=== PATIENT | female | born 1975 | race Caucasian/White ===

== ENCOUNTER 2020-08-02 11:53 | Outpatient (RCR) | payer OTHER, SELFPAY | END 2020-08-02 11:54 | disposition home or self-care (01) | LOC: HO.PT 11:53 | PROVIDERS: Visit Provider Internal Medicine | DX: M54.2 Cervicalgia (principal) | CPT/HCPCS: 97014; 97110; 97140 ==

== ENCOUNTER 2020-09-07 13:59 | Outpatient (REF) | payer OTHER, SELFPAY ==
[2020-09-10 22:57] LABS: HPV 16 RNA NOT DETECTED (NOT DETECTED); HPV mRNA E6/E7 rflx Detected (Not Detected)
== END 2020-09-07 14:00 | disposition home or self-care (01) ==
LOC: HO.LAB 13:59
PROVIDERS: PCP Internal Medicine; Referring Provider Internal Medicine; Visit Provider Obstetrics & Gynecology
DX: Z01.419 Encounter for gynecological examination (general) (routine) without abnormal findings (principal)
CPT/HCPCS: 87624; 87625; 88141; 88142

== ENCOUNTER 2020-09-13 08:37 | Outpatient (REF) | payer OTHER, SELFPAY ==
[2020-09-13 11:04] LABS: COVID-19 Test Negative (Negative); IDNOW Serial# 55D5AD1C
== END 2020-09-13 08:38 | disposition home or self-care (01) ==
LOC: HO.EMPCOV 08:37
PROVIDERS: PCP Internal Medicine; Visit Provider Internal Medicine
DX: Z20.828 Contact with and (suspected) exposure to other viral communicable diseases (principal)
CPT/HCPCS: 87635; C9803

== ENCOUNTER 2020-10-06 07:49 | Outpatient (REF) | payer OTHER, SELFPAY ==
--- NOTE | 2020-10-06 | US_ITS ---
EXAMINATION: US ABDOMEN COMPLETE CLINICAL INFORMATION: Chronic hepatitis B. COMPARISON: Ultrasound abdomen complete dated 01/08/2019 and 12/29/2016. CT abdomen and pelvis without contrast dated 09/04/2014. MRI abdomen without and with contrast dated 01/19/2010. TECHNIQUE: Real-time imaging of the abdominal viscera. FINDINGS: PANCREAS: Normal. ABDOMINAL AORTA: The proximal, mid, and distal segments are normal in caliber. INFERIOR VENA CAVA: Visualized portions are normal. LIVER: There is a 1.1 x 0.9 x 1.3 cm echogenic liver lesion right hepatic lobe suggestive of a small hemangioma. No additional lesions seen. The liver is normal in size. The liver contour is normal. Parenchymal echogenicity is normal. There is no intrahepatic biliary duct dilatation seen. GALLBLADDER: There is small polyps along the posterior ulnar wall. The gallbladder is physiologically distended without evidence of stones, sludge, wall thickening or pericholecystic fluid. COMMON BILE DUCT: Normal in caliber measuring 0.4 cm in diameter. RIGHT KIDNEY: Normal. No hydronephrosis. No renal calculi or focal parenchymal lesions. The kidney measures 10.0 cm in maximum dimension. LEFT KIDNEY: Normal. No hydronephrosis. No renal calculi or focal parenchymal lesions. The kidney measures 11.3 cm in maximum dimension. SPLEEN: Normal. The spleen measures 9.3 cm in maximum dimension. FREE FLUID: None. US/US abdomen complete IMPRESSION: Right lower lobe liver hemangioma measuring 1.3 cm. Small gallbladder polyps but no echogenic stones or wall thickening. The rest of the abdominal ultrasound is unremarkable.
== END 2020-10-06 07:50 | disposition home or self-care (01) ==
LOC: HO.US 07:49
PROVIDERS: Visit Provider Internal Medicine
DX: B18.1 Chronic viral hepatitis B without delta-agent (principal)
CPT/HCPCS: 76700

== ENCOUNTER 2020-11-12 12:08 | Outpatient (REF) | payer OTHER, SELFPAY ==
--- NOTE | 2020-11-12 12:16 | MM_ITS ---
EXAMINATION: MM SCREENING DIGITAL BREAST TOMOSYNTHESIS, BILATERAL CLINICAL INFORMATION: Screening. Asymptomatic. The lifetime risk of breast cancer based on the Tyrer-Cuzick Model is 19%. COMPARISON: Mammography: 01/23/2019, 12/17/2017, 09/15/2016 TECHNIQUE: Digital breast tomosynthesis is performed in both the craniocaudal and mediolateral oblique views along with computer-aided detection (CAD). Synthesized 2D images are generated from the tomosynthesis. FINDINGS: The breasts are heterogeneously dense, which may obscure small masses (ACR BI-RADS breast composition Category c). There are no significant masses, abnormal calcifications, or other abnormalities. The axilla and skin contours are unremarkable. There is biopsy clip marker again noted anterior right breast. MM/MM tomosynthesis screening BI IMPRESSION: No mammographic evidence of malignancy. ASSESSMENT: BI-RADS 1: Negative RECOMMENDATION: Routine annual mammography screening. This patient's information was entered into a reminder system with a target due date for their next mammogram.
== END 2020-11-12 12:09 | disposition home or self-care (01) ==
LOC: HO.MAMMO 12:08
PROVIDERS: PCP Internal Medicine; Visit Provider Internal Medicine
DX: Z12.31 Encounter for screening mammogram for malignant neoplasm of breast (principal)
CPT/HCPCS: 77063; 77067

== ENCOUNTER 2020-11-17 09:11 | Outpatient (REF) | payer OTHER, SELFPAY ==
[2020-11-17 10:27] LABS: Prothrombin Time 11.8 SEC (10.8-13.0)
[2020-11-18 11:32] LABS: Alpha Fetoprotein 2.8 ng/mL
[2020-11-20 15:22] LABS: Hepatitis B Viral DNA Qn - cp 2.51 Log IU/mL (NOT DETECTED); Hepatitis B Viral DNA Qn-IU/mL 325 IU/mL (NOT DETECTED)
== END 2020-11-17 09:12 | disposition home or self-care (01) ==
LOC: HO.LAB 09:11
PROVIDERS: PCP Internal Medicine; Visit Provider Internal Medicine
DX: B18.1 Chronic viral hepatitis B without delta-agent (principal)
CPT/HCPCS: 36415; 82105; 85610; 87517

== ENCOUNTER → 2021-09-09 09:03 | Outpatient (BNVA) | payer OTHER, SELFPAY | PROVIDERS: PCP Internal Medicine; Visit Provider Advanced Practice Midwife ==

== ENCOUNTER 2021-09-09 11:10 | Outpatient (REF) | payer OTHER, SELFPAY ==
--- NOTE | ~2021-09-09 | US_ITS ---
EXAMINATION: US ABDOMEN COMPLETE CLINICAL INFORMATION: Abdominal pain. Rule out gallbladder disease. COMPARISON: Ultrasound abdomen complete 10/06/2020 and 01/08/2019. CT abdomen and pelvis 09/04/2014. MRI abdomen 01/19/2010. TECHNIQUE: Real-time imaging of the abdominal viscera. FINDINGS: PANCREAS: Normal. ABDOMINAL AORTA: The proximal, mid, and distal segments are normal in caliber. INFERIOR VENA CAVA: Visualized portions are normal. LIVER: There is a 1.1 cm echogenic lesion high in the right lobe of the liver that is stable and probably represents a benign hemangioma. No other focal liver lesion is seen. The liver is normal in size. The liver contour is normal. Liver echotexture is slightly increased. There is no intrahepatic biliary duct dilatation seen. GALLBLADDER: The gallbladder is normal in size. There is a small echogenic density adjacent to the gallbladder wall measuring 3 x 2 mm suggestive of a gallbladder wall polyp. The gallbladder is otherwise unremarkable. No definite gallstones are seen. COMMON BILE DUCT: Normal in caliber measuring 0.1 cm in diameter. RIGHT KIDNEY: Normal. No hydronephrosis. No renal calculi or focal parenchymal lesions. The kidney measures 10.1 cm in maximum dimension. LEFT KIDNEY: Normal. No hydronephrosis. No renal calculi or focal parenchymal lesions. The kidney measures 11.1 cm in maximum dimension. SPLEEN: Normal. The spleen measures 8.4 cm in maximum dimension. FREE FLUID: None. US/US abdomen complete IMPRESSION: Slightly echogenic liver. Stable 1 cm echogenic lesion high in the right lobe of the liver probably representing a benign hemangioma. Stable probable small gallbladder wall polyp.
[2021-09-09 13:22] LABS: MANUAL DIFF FLAG NO
[2021-09-09 13:39] LABS: Basophils Absolute Auto 0.1 X10*3/uL (0.0-0.2); Basophils Percent Auto 0.7 % (0-2); Eosinophils Absolute Auto 0.1 X10*3/uL (0.0-0.4); Eosinophils Percent Auto 0.7 % (0-4); Hematocrit 38.6 % (37.0-47.0); Hemoglobin 13.2 g/dl (12.0-16.0); Imm Gran Abs Auto 0.02 X10*3/uL (0.00-0.03); Imm Gran Pct Auto 0.3 % (0.0-0.4); Lymphocytes Absolute Auto 1.7 X10*3/uL (1.2-4.9); Lymphocytes Percent Auto 24.5 % (20-40); Mean Corpuscular HGB Conc 34.2 g/dl (31.0-35.0); Mean Corpuscular Hemoglobin 32.6 pg (27.0-33.0); Mean Corpuscular Volume 95.3 fL (80.0-98.0); Mean Platelet Volume 10.2 fL (9.4-12.3); Monocytes Absolute Auto 0.5 X10*3/uL (0.1-1.2); Monocytes Percent Auto 6.7 % (2-11); Neutrophils Absolute Auto 4.6 x10*3/uL (2.0-8.3); Neutrophils Percent Auto 67.1 % (45-73); Platelet Count 265 X10*3/uL (160-400); Red Blood Count 4.05 X10*6/uL (4.20-5.50); Red Cell Distribution Width 11.9 % (11.0-16.0); White Blood Count 6.8 X10*3/uL (4.8-10.8)
[2021-09-09 13:53] LABS: Alanine Aminotransferase 13 U/L (0-31); Albumin Level 4.2 g/dL (3.5-5.0); Alkaline Phosphatase 39 U/L (39-117); Anion Gap 15 (12-20); Aspartate Amino Transferase 15 U/L (5-31); Bilirubin Total 0.8 mg/dL (0.0-1.0); Blood Urea Nitrogen 9 mg/dL (9-16); C Reactive Protein 0.06 mg/dL (< or = 0.50); Carbon Dioxide 21 mmol/L (22-29); Chloride 105 mmol/L (96-108); Estimated Glomerular Filt Rate > 60; Glucose Random 88 mg/dL (60-115); Lipase 13 U/L (8-78); Potassium 3.9 mmol/L (3.3-5.1); Sodium 137 mmol/L (135-145)
[2021-09-09 14:14] LABS: Vitamin D 25-OH Total 19.2 ng/mL (>30)
== END 2021-09-09 11:11 | disposition home or self-care (01) ==
LOC: HO.10HDL 11:10
PROVIDERS: Visit Provider Internal Medicine
DX: R10.84 Generalized abdominal pain (principal)
CPT/HCPCS: 36415; 76700; 80053; 82306; 83690; 85025; 86140

== ENCOUNTER 2021-09-20 07:50 | Outpatient (REF) | payer OTHER, SELFPAY ==
--- NOTE | ~2021-09-20 | CT_ITS ---
EXAMINATION: CT ABDOMEN WITHOUT CONTRAST CLINICAL INFORMATION: Epigastric pain COMPARISON: Previous CT August 2014 and abdominal ultrasound 09/17/2021. Liver MRI or December 2009. Images not available. TECHNIQUE: Contiguous axial thin section helical images of the abdomen were performed without contrast. The data set was reformatted in the coronal and sagittal planes and reviewed on an independent workstation. This CT examination was performed using dose optimization techniques as appropriate, variously including the following: *Automated exposure control *Adjustment of mA and/or kV according to patient size (this includes techniques or standardized protocols for targeted exams where dose is matched to indication/reason for exam; i.e. extremities or head) *Use of iterative reconstruction technique DLP: 164 mGy-cm FINDINGS: LUNG BASES: The lung bases are clear. LIVER, GALLBLADDER, BILIARY TREE: The there is a 1 cm low-attenuation lesion high in the dome of the right lobe of the liver axial image 11 series 3. This is stable from prior exams and probably represents a hemangioma. the liver is otherwise normal. The gallbladder is normal. There is no biliary duct dilatation or PANCREAS: Unremarkable SPLEEN: Unremarkable ADRENAL GLANDS AND KIDNEYS: Unremarkable BOWEL LOOPS: The visualized small and large bowel is unremarkable. The stomach is unremarkable. There is a small umbilical hernia containing fat. LYMPH NODES: Unremarkable VASCULAR: Unremarkable. BONES: There is degenerative disc disease at L4-L5 and L5-S1. CT/CT abdomen wo con IMPRESSION: Stable 1 cm liver lesion in the right lobe liver probably representing a hemangioma. Small umbilical hernia containing fat. Fleischner guidelines were followed.
== END 2021-09-20 07:51 | disposition home or self-care (01) ==
LOC: HO.CT 07:50
PROVIDERS: PCP Internal Medicine; Visit Provider Internal Medicine
DX: R10.13 Epigastric pain (principal)
CPT/HCPCS: 74150

== ENCOUNTER 2021-09-30 08:54 | Outpatient (REF) | payer OTHER, SELFPAY ==
[2021-10-03 14:46] LABS: Alpha Fetoprotein 2.6 ng/mL
[2021-10-05 14:11] LABS: Hepatitis B Viral DNA Qn - cp 2.84 Log IU/mL (NOT DETECTED); Hepatitis B Viral DNA Qn-IU/mL 687 IU/mL (NOT DETECTED)
== END 2021-09-30 08:55 | disposition home or self-care (01) ==
LOC: HO.10HDL 08:54
PROVIDERS: Visit Provider Internal Medicine
DX: B18.1 Chronic viral hepatitis B without delta-agent (principal)
CPT/HCPCS: 36415; 82105; 87517

== ENCOUNTER 2021-10-19 10:02 | Day surgery (SDC) | payer OTHER, SELFPAY ==
[2021-10-19 10:15] VITALS: BMI 25.9
[2021-10-19 10:18] LABS: UPreg QC Valid YES; Urine Pregnancy NEGATIVE (NEGATIVE)
[2021-10-19 10:19] VITALS: BP 135/72; PULSE 80; RESP 16; TEMP 37.1; O2SAT 98
--- NOTE | 2021-10-19 11:21 | HO.ANESPROP2 ---
HPI - Anesthesia Eval Consult details Narrative: 46 F for EGD PMFSH Family History Family History Paternal Grandmother Breast cancer Family history of problems with anesthesia: No Surgical History Surgical History History of breast biopsy History of section History of orthopedic surgery History of Problems with Anesthesia: No Social History Social History Alcohol intake: current Alcohol intake frequency: a few times a week Patient Tobacco Use Status: Never used Tobacco Use of substances other than those prescribed or required for medical reasons: No Are you DNR?: No Advance Directives: Yes Advance Directives Date on File: 08/02/20 Current occupational status: employed 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 [employer] Sexual orientation: Straight/Heterosexual Gender identity: Female Meds Allergies Allergy/AdvReac Type Severity Reaction Status Date / Time No Known Allergies Allergy Verified 09/09/21 09:17 Exam Exam Date and Time: October 19, 2021 1121 Height,Weight and Vital Signs: Height 5 ft Weight 60.328 kg Last Vital Signs Temp 98.7 F 10/19/21 10:19 Pulse 80 10/19/21 10:19 Resp 16 10/19/21 10:19 BP 135/72 10/19/21 10:19 Pulse Ox 98 10/19/21 10:19 Pertinent Lab Results Pertinent Lab Results: Laboratory Tests 10/19/21 10:08 Urine Test NEGATIVE Airway Mallampati Class: II TM Dist: >3cm Neck ROM: Limited Loose/Missing/Broken Teeth: Yes (Permanent ) Heart: rrr Lungs: bl breath sounds Assessment and Plan Final Anesthetic Review Family History of Problems with Anesthesia: No History of Problems with Anesthesia: No NPO: Yes ASA Class: I Final Preanesthetic Review: Meds/Allgs Chart Reviewed Anesthetic Plan Anesthetic Plan: MAC: Disposition: Standard PACU
[2021-10-19] MEDS: Lactated Ringers 1,000 ML 80 ML IVCONT (11:29)
--- NOTE | 2021-10-19 11:31 | PC.NURSE ---
Patient wearing wedding ring x2 and one stud earring in left ear. Can not be removed per patient. Patient educated on risks of wearing metal into OR/Procedure room.
[2021-10-19 11:58] VITALS: BP 130/57; PULSE 85; RESP 12; TEMP 36.6; O2SAT 99
--- NOTE | 2021-10-19 12:00 | P.BOP_ITS ---
Brief Operative Note Date of Service: 10/19/21 Pre-op diagnosis: Abdominal pain Post-op diagnosis: other (Small hiatal hernia) Procedure: EGD with biopsies Surgeon: Garrick Johnson Anesthesia: MAC Was an Compliance And Control Analyst used for this Procedure?: No Estimated blood loss (mL): 2.0 Pathology: other (A. Descending duodenum B. Gastric antrum C. EG Junction at 35cm) Condition: stable Disposition: PACU
[2021-10-19 12:15] VITALS: BP 117/63; PULSE 76; RESP 16; TEMP 36.6; O2SAT 99
--- NOTE | 2021-10-19 12:40 | OP_ITS ---
SURGEON: Garrick Johnson MD INDICATIONS: The patient presents for evaluation of abdominal pain. Full consent was obtained from her for this, including risks of bleeding and perforation. PREOPERATIVE DIAGNOSIS: Abdominal pain. POSTOPERATIVE DIAGNOSIS: PROCEDURE PERFORMED: Esophagogastroduodenoscopy with biopsies. ESTIMATED BLOOD LOSS: COMPLICATIONS: ANESTHESIA: Monitored anesthesia care. ASSISTANTS: SPECIMENS: POSTOPERATIVE DIAGNOSES: Abdominal pain, small hiatal hernia, otherwise normal upper endoscopy. DESCRIPTION OF PROCEDURE: The patient was placed in the left lateral decubitus position. The Olympus video gastroscope was passed in the posterior oropharynx and upper esophagus under direct vision. The scope was passed slowly into the distal esophagus. The gastroesophageal junction appeared at 35 cm. There was no sign of any esophagitis nor Benites's mucosa. There was perhaps some minimal irregularity of the EG junction itself, but again nothing significant. The scope entered the stomach. There was a small hiatal hernia. The scope was advanced to pylorus and the duodenum was cannulated at the descending portion. The duodenum including the bulb appeared normal without mass or ulceration. Biopsies were obtained from the 2nd and 3rd portions of duodenum. The scope was withdrawn back into the stomach. The gastric antrum and body appeared normal with good peristalsis. The scope was retroflexed visualizing the proximal stomach carefully which appeared normal, without any sign of mass or ulceration. The scope was straightened. Biopsies were obtained from the prepyloric antrum. Scope was withdrawn back into the esophagus. Biopsies were obtained at the EG junction at 35 cm. Proximal to this, the esophageal mucosa appeared normal. The scope was withdrawn from the patient. She tolerated the procedure well and was returned to recovery area in stable condition. IMPRESSION: Small hiatal hernia, otherwise normal upper endoscopy. PLAN: The results of biopsies will be checked. She does report that things have continued to improve fairly steadily since the pain was relatively severe. Her recent workup has included a negative abdominal ultrasound and negative CT scan of the abdomen as well as normal laboratories. At this point, I am not going to put her on any medication and I do not think any further diagnostic testing is needed. I would plan to see her again within 2 to 3 months just for a followup visit. If things continue to improve and resolve, then I do not think any further treatment or workup would be needed. If she continues to have significant pain, particularly in the right upper quadrant, then we might want to obtain a HIDA scan with CCK to rule out acalculous cholecystitis. I did advise her to call me prior to the office visit if she is having any problems or questions. This has been discussed with her . MD MANUEL Allen/CHARLEE / [id number]
== END 2021-10-19 12:54 | disposition home or self-care (01) ==
PROVIDERS: Anesthesiology; PCP Internal Medicine; Visit Provider Internal Medicine
PROC: 0DJ08ZZ Inspection of Upper Intestinal Tract, Via Natural or Artificial Opening Endoscopic (ICD-10-PCS; CPT 43235; principal; 2021-10-19 11:10)
DX: R10.13 Epigastric pain (principal); R10.11 Right upper quadrant pain; K44.9 Diaphragmatic hernia without obstruction or gangrene; K31.9 Disease of stomach and duodenum, unspecified; B18.1 Chronic viral hepatitis B without delta-agent; Z79.1 Long term (current) use of non-steroidal anti-inflammatories (NSAID)
CPT/HCPCS: 43239; 81025; 88305; 88342

== ENCOUNTER 2022-03-23 07:32 | Outpatient (REF) | payer OTHER, SELFPAY ==
--- NOTE | ~2022-03-23 | MM_ITS ---
EXAMINATION: MM SCREENING DIGITAL BREAST TOMOSYNTHESIS, BILATERAL CLINICAL INFORMATION: Screening. Asymptomatic. The lifetime risk of breast cancer based on the Tyrer-Cuzick Model is 14%. COMPARISON: Mammography: and studies dating back to 03/10/2013 TECHNIQUE: Digital breast tomosynthesis is performed in both the craniocaudal and mediolateral oblique views along with computer-aided detection (CAD). Synthesized 2D images are generated from the tomosynthesis. FINDINGS: The breasts are extremely dense, which lowers the sensitivity of mammography (ACR BI-RADS breast composition Category d). In the retroareolar region of the right breast on mediolateral oblique projection there is a 1.2 x 0.8 cm density for which spot compression view and possible ultrasound is recommended. Radiology staff will contact patient to obtain this study. MM/MM tomosynthesis screening BI IMPRESSION: Right breast retroareolar density for further evaluation with spot compression view. ASSESSMENT: BI-RADS 0: Incomplete - Need Additional Imaging Evaluation RECOMMENDATION: 1. Additional views of the right breast. 2. Targeted ultrasound if warranted after review of the additional views. 3. Radiology department staff will contact the patient for additional imaging.
== END 2022-03-23 07:33 | disposition home or self-care (01) ==
LOC: HO.MAMMO 07:32
PROVIDERS: PCP Internal Medicine; Visit Provider Internal Medicine
DX: Z12.31 Encounter for screening mammogram for malignant neoplasm of breast (principal)
CPT/HCPCS: 77063; 77067

== ENCOUNTER 2022-04-05 13:52 | Outpatient (REF) | payer OTHER, SELFPAY ==
--- NOTE | ~2022-04-05 | MM_ITS ---
EXAMINATION: MM DIAGNOSTIC DIGITAL BREAST TOMOSYNTHESIS, RIGHT US BREAST TARGETED, RIGHT CLINICAL INFORMATION: Retroareolar density right breast. COMPARISON: Mammography: 03/23/2022 and studies dating back to 03/10/2013. TECHNIQUE: Digital breast tomosynthesis is performed. 2D images are generated from the tomosynthesis. The following views are obtained: Spot compression views of the anterior right breast in craniocaudal and mediolateral oblique views. Targeted right breast ultrasound. FINDINGS: The breasts are extremely dense, which lowers the sensitivity of mammography (ACR BI-RADS breast composition Category d). Additional views show no significant mass, architectural abnormality, or abnormal calcifications. Targeted right breast ultrasound retroareolar region does not demonstrate any abnormal cystic or solid masses. No region of abnormal distal sound shadowing. Results are discussed with the patient at time of visit. MM/MM tomosynthesis added views R IMPRESSION: No mammographic or ultrasound evidence of malignancy. ASSESSMENT: BI-RADS 1: Negative RECOMMENDATION: Routine annual mammography screening. This patient's information was entered into a reminder system with a target due date for their next mammogram.
== END 2022-04-05 13:53 | disposition home or self-care (01) ==
LOC: HO.MAMMO 13:52
PROVIDERS: Visit Provider Internal Medicine
DX: R92.2 Inconclusive mammogram (principal)
CPT/HCPCS: 76642; 77061; 77065

== ENCOUNTER 2022-05-05 07:28 | Day surgery (SDC) | payer OTHER, SELFPAY ==
--- NOTE | 2022-05-04 08:46 | P.CONAN_ITS ---
Documented by User: Olimpia Linton NP 05/04/22 08:46 HPI - Anesthesia Eval Consult details Narrative: 47yo F for Colonoscopy [facility] Past Medical History Medical History Chronic hepatitis B Family History Family History Paternal Grandmother Breast cancer Family history of problems with anesthesia: No Surgical History Surgical History History of breast biopsy History of section History of orthopedic surgery Hx of esophagogastroduodenoscopy History of Problems with Anesthesia: No Social History Social History Alcohol intake: current Alcohol intake frequency: a few times a week Patient Tobacco Use Status: Never used Tobacco Are you DNR?: No Advance Directives: Yes Advance Directives on File: Yes Advance Directives Date on File: 08/02/20 Nutrition Risks: No Nutritional Risk FDLMP: unkown due to iud Current occupational status: employed 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[place] Sexual orientation: Straight/Heterosexual Gender identity: Female Meds Allergies Allergy/AdvReac Type Severity Reaction Status Date / Time No Known Allergies Allergy Verified 05/05/22 08:01 Home Medications Medication Instructions Recorded Confirmed Last Taken Type Vitamin C 02/09/22 Unknown History Exam Exam Date and Time: May 04, 2022 0846 Assessment and Plan Assessment Anesthesia Assessment: Chart Reviewed Final Anesthetic Review Family History of Problems with Anesthesia: No History of Problems with Anesthesia: No Documented by User: Stephanie Khoury MD 05/05/22 08:04 [facility] Past Medical History Medical History Chronic hepatitis B Family History Family History Paternal Grandmother Breast cancer Surgical History Surgical History History of breast biopsy History of section History of orthopedic surgery Hx of esophagogastroduodenoscopy Social History Social History Alcohol intake: current Alcohol intake frequency: a few times a week Patient Tobacco Use Status: Never used Tobacco Are you DNR?: No Advance Directives: Yes Advance Directives on File: Yes Advance Directives Date on File: 08/02/20 Nutrition Risks: No Nutritional Risk FDLMP: unkown due to iud Current occupational status: employed 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[place] Sexual orientation: Straight/Heterosexual Gender identity: Female Meds Allergies Allergy/AdvReac Type Severity Reaction Status Date / Time No Known Allergies Allergy Verified 05/05/22 08:01 Home Medications Medication Instructions Recorded Confirmed Last Taken Type Vitamin C 02/09/22 Unknown History Exam Airway Mallampati Class: II TM Dist: >3cm Neck ROM: Full Assessment and Plan Assessment Anesthesia Assessment: Anesthesia Plan Discussed Final Anesthetic Review NPO: Yes ASA Class: I Final Preanesthetic Review: No Changes in Pt Med Stat, Meds/Allgs Chart Reviewed, Consent Obtained/Reviewed and Anes Risks/Benef Reviewed Patient Risk: Low Procedure Risk: Low Anesthetic Plan Anesthetic Plan: MAC: Disposition: Standard PACU
[2022-05-05 07:57] VITALS: BMI 26.4
[2022-05-05 07:57] LABS: UPreg QC Valid YES; Urine Pregnancy NEGATIVE (NEGATIVE)
[2022-05-05] MEDS: Lactated Ringers 1,000 ML 100 ML IVCONT (07:58)
[2022-05-05 08:11] VITALS: BP 132/81; PULSE 65; RESP 18; TEMP 36.7; O2SAT 99
[2022-05-05 09:35] VITALS: BP 112/62; PULSE 74; RESP 16; TEMP 36.5; O2SAT 97
--- NOTE | 2022-05-05 09:37 | PM.OP ---
Brief Operative Note Date of Service: 05/05/22 Pre-op diagnosis: Screening Post-op diagnosis: other (Internal hemorrhoids) Procedure: Colonoscopy to the cecum and TI Surgeon: Garrick Johnson Anesthesia: MAC Was an Insurance Verifier used for this Procedure?: No Estimated blood loss (mL): 0 Pathology: none sent Condition: stable Disposition: PACU
[2022-05-05 09:50] VITALS: BP 125/67; PULSE 68; RESP 20; TEMP 36.4; O2SAT 100
--- NOTE | 2022-05-05 12:17 | OP_ITS ---
SURGEON: Garrick Johnson MD INDICATIONS: The patient presents for evaluation of colorectal cancer screening. Full consent was obtained from her for this, including risks of bleeding and perforation. PREOPERATIVE DIAGNOSIS: Colorectal cancer screening. POSTOPERATIVE DIAGNOSIS: PROCEDURE PERFORMED: Colonoscopy to cecum and terminal ileum. ESTIMATED BLOOD LOSS: COMPLICATIONS: ANESTHESIA: Monitored anesthesia care. ASSISTANTS: SPECIMENS: POSTOPERATIVE DIAGNOSES: Colorectal cancer screening, internal hemorrhoids. DESCRIPTION OF PROCEDURE: The patient was placed in the left lateral decubitus position. The digital rectal exam revealed no abnormalities. The Olympus video pediatric colonoscope was entered into the rectum and advanced easily to the cecum. Once in the cecum, I did identify normal-appearing cecal pouch with appendiceal orifice and a normal-appearing ileocecal valve. The terminal ileum was cannulated and appeared normal. The scope was withdrawn back into the colon. The entire cecum and ileocecal valve appeared normal. The scope was then slowly withdrawn assessing all mucosal surfaces carefully. Preparation was excellent. I did not visualize any sign of polyps, colitis, or angiodysplasia. In the rectum, scope was retroflexed visualizing internal hemorrhoids, but no other pathology. The rectal mucosa appeared normal. The scope was straightened and withdrawn from the patient. She tolerated the procedure well and was returned to recovery area in stable condition. IMPRESSION: Internal hemorrhoids, otherwise normal colonoscopy. PLAN: Given the negative exam and negative family history, I would recommend a followup colonoscopy in 10 years for further screening. She was advised to see me in 6 months for a followup office visit in regard to her chronic hepatitis B and the need to schedule a followup ultrasound of the liver and lab work, including an alpha fetoprotein level and a hepatitis B viral DNA. This has been discussed with her . MD MANUEL Allen/CHARLEE / [id number] HILARIA
== END 2022-05-05 10:20 | disposition home or self-care (01) ==
PROVIDERS: Nurse Practitioner; PCP Internal Medicine; Visit Provider Internal Medicine
PROC: 0DJD8ZZ Inspection of Lower Intestinal Tract, Via Natural or Artificial Opening Endoscopic (ICD-10-PCS; CPT 45378; principal; 2022-05-05 08:40)
DX: Z12.11 Encounter for screening for malignant neoplasm of colon (principal); K64.8 Other hemorrhoids; B18.1 Chronic viral hepatitis B without delta-agent; Z96.1 Presence of intraocular lens
CPT/HCPCS: 45378; 81025; J2795

== ENCOUNTER 2022-11-07 08:21 | Outpatient (REF) | payer OTHER, SELFPAY ==
[2022-11-08 16:57] LABS: HPV mRNA E6/E7 rflx Not Detected (Not Detected)
== END 2022-11-07 08:22 | disposition home or self-care (01) ==
LOC: HO.LNP 08:21
PROVIDERS: PCP Internal Medicine; Visit Provider Advanced Practice Midwife
DX: Z01.419 Encounter for gynecological examination (general) (routine) without abnormal findings (principal); Z11.51 Encounter for screening for human papillomavirus (HPV)
CPT/HCPCS: 87624; 88142

== ENCOUNTER 2023-02-26 13:56 | Outpatient (REF) | payer OTHER, SELFPAY ==
--- NOTE | ~2023-02-26 | US_ITS ---
EXAMINATION: US ABDOMEN COMPLETE CLINICAL INFORMATION: Chronic hep B. COMPARISON: CT abdomen without contrast 09/20/2021. Ultrasound abdomen complete 09/09/202017/11 and 10/06/2020 TECHNIQUE: Real-time imaging of the abdominal viscera. FINDINGS: PANCREAS: Normal. ABDOMINAL AORTA: The proximal, mid, and distal segments are normal in caliber. INFERIOR VENA CAVA: Visualized portions are normal. LIVER: The liver is normal in size. The liver contour is normal. Parenchymal echogenicity is normal. A 1 cm circumscribed echogenic liver lesion without internal vascularity on the previously 1.1 cm in 2020. There is no intrahepatic biliary duct dilatation seen. GALLBLADDER: A 2 mm gallbladder polyp. The gallbladder is physiologically distended without evidence of stones, sludge, wall thickening or pericholecystic fluid. COMMON BILE DUCT: Normal in caliber measuring 0.2 cm in diameter. RIGHT KIDNEY: Normal. No hydronephrosis. No renal calculi or focal parenchymal lesions. The kidney measures 10.4 cm in maximum dimension. LEFT KIDNEY: Normal. No hydronephrosis. No renal calculi or focal parenchymal lesions. The kidney measures 11.7 cm in maximum dimension. SPLEEN: Normal. The spleen measures 8.7 cm in maximum dimension. FREE FLUID: None. US/US abdomen complete IMPRESSION: A circumscribed, echogenic, avascular liver lesion measuring 1, stable from 2020 likely to reflect a hemangioma. A gallbladder polyp measuring 2 mm, unchanged from 2020. If patient has no risk factors for gallbladder malignancy, follow-up recommendations are repeat ultrasound at one, 3, and 5 years from the date of original exam documenting the findings. If patient has no symptoms and risk factors, follow-up recommendations are ultrasound 6 months and one, 2, 3, 4, and 5 years from the date of original exam documenting the findings.
== END 2023-02-26 13:57 | disposition home or self-care (01) ==
LOC: HO.US 13:56
PROVIDERS: Visit Provider Internal Medicine
DX: B18.1 Chronic viral hepatitis B without delta-agent (principal)
CPT/HCPCS: 76700

== ENCOUNTER 2023-02-27 09:00 | Outpatient (REF) | payer OTHER, SELFPAY ==
[2023-02-27 09:17] LABS: MANUAL DIFF FLAG NO
[2023-02-27 09:21] LABS: Basophils Absolute Auto 0.1 X10*3/uL (0.0-0.2); Basophils Percent Auto 0.7 % (0-2); Eosinophils Absolute Auto 0.1 X10*3/uL (0.0-0.4); Eosinophils Percent Auto 0.7 % (0-4); Hematocrit 41.9 % (37.0-47.0); Hemoglobin 14.2 g/dl (12.0-16.0); Imm Gran Abs Auto 0.04 X10*3/uL (0.00-0.03); Imm Gran Pct Auto 0.5 % (0.0-0.4); Lymphocytes Absolute Auto 2.2 X10*3/uL (1.2-4.9); Lymphocytes Percent Auto 28.5 % (20-40); Mean Corpuscular HGB Conc 33.9 g/dl (31.0-35.0); Mean Corpuscular Volume 97.4 fL (80.0-98.0); Mean Platelet Volume 9.4 fL (9.4-12.3); Monocytes Absolute Auto 0.5 X10*3/uL (0.1-1.2); Neutrophils Absolute Auto 4.8 x10*3/uL (2.0-8.3); Neutrophils Percent Auto 62.6 % (45-73); Platelet Count 257 X10*3/uL (160-400); Red Cell Distribution Width 12.3 % (11.0-16.0); White Blood Count 7.6 X10*3/uL (4.8-10.8)
[2023-02-27 09:31] LABS: Prothrombin Time 10.9 SEC (10.0-13.1)
[2023-02-27 09:46] LABS: Alanine Aminotransferase 15 U/L (0-31); Albumin Level 4.2 g/dL (3.5-5.0); Alkaline Phosphatase 57 U/L (39-117); Aspartate Amino Transferase 18 U/L (5-31); Bilirubin Direct 0.4 mg/dL (0.0-0.5); Bilirubin Total 0.9 mg/dL (0.0-1.0); Total Protein 7.2 g/dL (6.5-8.0)
[2023-03-01 19:44] LABS: Hepatitis B Viral DNA Qn - cp 2.86 Log IU/mL (NOT DETECTED); Hepatitis B Viral DNA Qn-IU/mL 725 IU/mL (NOT DETECTED)
[2023-03-05 14:13] LABS: FIB-ALT 14 U/L (6-29); FIB-Alpha-2-Macroglobulin 232 mg/dL (106-279); FIB-Apolipoprotein A1 200 mg/dL (101-198); FIB-GGT 24 U/L (3-55); FIB-Haptoglobin 117 mg/dL (43-212); FIB-Total Bilirubin 0.5 mg/dL (0.2-1.2); Liver Fibrosis Score 0.12; Liver Fibrosis Stage F0; Nec Inflam Act Grade A0; Nec Inflam Act Score 0.03
== END 2023-02-27 09:01 | disposition home or self-care (01) ==
LOC: HO.LAB 09:00
PROVIDERS: PCP Internal Medicine; Visit Provider Internal Medicine
DX: B18.1 Chronic viral hepatitis B without delta-agent (principal)
CPT/HCPCS: 36415; 80076; 81596; 82105; 85025; 85610; 87517

== ENCOUNTER 2023-11-07 11:54 | Outpatient (REF) | payer OTHER, SELFPAY ==
--- NOTE | ~2023-11-07 | MM_ITS ---
EXAMINATION: MM SCREENING DIGITAL BREAST TOMOSYNTHESIS, BILATERAL CLINICAL INFORMATION: Screening. Asymptomatic. COMPARISON: Mammography: This study is compared with prior exams dating back to 2018. TECHNIQUE: Digital breast tomosynthesis is performed in both the craniocaudal and mediolateral oblique views along with computer-aided detection (CAD). Synthesized 2D images are generated from the tomosynthesis. FINDINGS: The breasts are heterogeneously dense, which may obscure small masses (ACR BI-RADS breast composition Category c). There are no significant masses, abnormal calcifications, or other abnormalities. There is a tissue marker in the superficial portion of the upper outer quadrant of the right breast from prior benign percutaneous biopsy. MM/MM tomosynthesis screening BI IMPRESSION: No mammographic evidence of malignancy. ASSESSMENT: BI-RADS BI-RADS 2 - Benign Findings RECOMMENDATION: Routine annual mammography screening. 1 year F/U This examination should not preclude the clinical evaluation of a suspicious palpable abnormality. This patient's information was entered into a reminder system with a target due date for their next mammogram.
== END 2023-11-07 11:55 | disposition home or self-care (01) ==
LOC: HO.MAMMO 11:54
PROVIDERS: PCP Internal Medicine; Visit Provider Internal Medicine
DX: Z12.31 Encounter for screening mammogram for malignant neoplasm of breast (principal)
CPT/HCPCS: 77063; 77067

== ENCOUNTER → 2023-11-07 12:00 | Outpatient (BNV) | payer OTHER, SELFPAY | PROVIDERS: PCP Internal Medicine; Visit Provider Radiology Diagnostic Radiology | DX: Z12.31 Encounter for screening mammogram for malignant neoplasm of breast (principal) | CPT/HCPCS: 77063; 77067 ==

== ENCOUNTER 2023-12-04 07:52 | Outpatient (AMB) | payer OTHER, SELFPAY ==
--- NOTE | 2023-12-04 07:54 | MHC.OFFVIS ---
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 Doing well with no concerns. She tries to eat healthy and stays active with exercise. Mirena in place, occasional spotting. Currently is sexually active. She denies vaginal itching and irritation. STI screening offered; she declines. Denies family history of ovarian or colon cancer. PGM-breast cancer. Last pap smear 2022, negative. Prior Pap HPV positive. Mammogram: October 2023. Colonoscopy is update-2022. 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[employer] [place] Sexual orientation: Straight/Heterosexual Gender identity: Female Female Reproductive History Menstrual control method: progestin IUCD (Mirena 01/2019) Total pregnancies: 2 Full term: 2 Number of Living Children: 2 Date of last pap smear: 11/07/22 (neg pap and hpv) History of abnormal pap smear: Yes (08/2020 +hpv, 1999 leep leti 2) Date of Mammogram: 11/07/23 (Birad 2) Review of Systems Const All systems reviewed & are unremarkable except as noted in HPI and below Reports as per HPI Eyes Reports no additional complaints ENT Reports no additional complaints Card Reports no additional complaints Resp Reports no additional complaints GI Reports as per HPI and Reports no additional complaints Reports as per HPI Musc Reports no additional complaints Skin/Breast Reports as per HPI Neuro Reports no additional complaints Psych Reports no additional complaints Endo Reports no additional complaints Otf/Lymph Reports no additional complaints Aller/Immun Reports no additional complaints Physical Exam Vital Signs: Last Vital Signs BP 116/76 12/04/23 07:55 BMI result Body Mass Index 27.7 Const General: cooperative, healthy appearing, no acute distress, well developed and alert Orientation/consciousness: patient oriented x3 HEENT Head: Yes normal to inspection Eyes General: appearance normal, both eyes and all related structures Neck Neck: Yes normal visual inspection Thyroid: Thyroid normal Chest Chest palpation & inspection: normal inspection of the chest and other (no puckering, dimpling, peau de orange, retraction, discharge, masses) Breast/axilla inspection: normal inspection of the breasts Breast/axilla palpation: normal palpation of the breasts Resp Effort & Inspection: normal respiratory effort GI Inspection: Yes normal to inspection Palpation (GI): Soft to palpation Rectal Exam - Female: deferred General: Yes bladder normal to palpation External Female Exam: normal external appearance and normal appearance of the urethra Speculum Exam - Vagina: normal appearance of the vagina, normal palpation and normal vaginal discharge Speculum Exam - Cervix: normal appearance of the cervix, normal palpation and Other cervical findings present (IUD strings present, bled slightly with Pap) Bimanual exam- vagina & uterus: normal bimanual exam, normal palpation, uterine size normal, bladder normal to palpation, normal palpation and non-tender Bimanual Exam- Adnexa, other: no masses Skin General skin exam: no rashes or lesions noted Rashes: no rashes Neuro General: patient oriented x3 Cognition (Neuro): normal cognition Extrem General: Yes normal to inspection Psych Attitude: cooperative Thought process: Normal thought process present Assessment & Plan Assessment & Plan (1) Encounter for well woman exam with routine gynecological exam: Code(s): Z01.419 - Encounter for gynecological examination (general) (routine) without abnormal findings Plan Discussed: Current recommendations for pap smears per ASCCP guidelines. Breast awareness and periodic breast exams. Maintain a healthy lifestyle including a well balanced diet and routine exercise. Mammogram yearly. Patient verbalizes understanding and agrees to the plan of care. She was given opportunity to ask questions and all questions were answered to the best of my ability. 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 This note is constructed using voice recognition software. While every effort has been made to ensure accuracy, store leader errors may have been included. Coding Level of Care Code Est Pt Prev Care 40-64y(41352) Diagnoses Encounter for well woman exam with routine gynecological exam Z01.419
[2023-12-04 07:55] VITALS: BP 116/76; BMI 27.7
== END 2023-12-04 08:19 | disposition home or self-care (01) ==
PROVIDERS: PCP Internal Medicine; Visit Provider Advanced Practice Midwife
DX: Z01.419 Encounter for gynecological examination (general) (routine) without abnormal findings (principal)
CPT/HCPCS: 99396

== ENCOUNTER 2023-12-04 07:52 | Outpatient (REF) | payer OTHER, SELFPAY ==
[2023-12-10 20:09] LABS: HPV mRNA E6/E7 rflx Not Detected (Not Detected)
== END 2023-12-04 07:53 | disposition home or self-care (01) ==
LOC: HO.LNP 07:52
PROVIDERS: PCP Internal Medicine; Visit Provider Advanced Practice Midwife
DX: Z01.419 Encounter for gynecological examination (general) (routine) without abnormal findings (principal); Z11.51 Encounter for screening for human papillomavirus (HPV)
CPT/HCPCS: 87624; 88142

== ENCOUNTER 2023-12-04 08:24 | Outpatient (REF) | payer OTHER, SELFPAY ==
[2023-12-04 09:00] LABS: MANUAL DIFF FLAG NO
[2023-12-04 10:33] LABS: Basophils Absolute Auto 0.1 X10*3/uL (0.0-0.2); Basophils Percent Auto 0.9 % (0-2); Eosinophils Absolute Auto 0.1 X10*3/uL (0.0-0.4); Eosinophils Percent Auto 1.3 % (0-4); Hematocrit 42.2 % (37.0-47.0); Hemoglobin 14.3 g/dl (12.0-16.0); Imm Gran Abs Auto 0.01 X10*3/uL (0.00-0.03); Imm Gran Pct Auto 0.2 % (0.0-0.4); Lymphocytes Percent Auto 36.1 % (20-40); Mean Corpuscular HGB Conc 33.9 g/dl (31.0-35.0); Mean Corpuscular Hemoglobin 32.8 pg (27.0-33.0); Mean Corpuscular Volume 96.8 fL (80.0-98.0); Mean Platelet Volume 9.7 fL (9.4-12.3); Monocytes Absolute Auto 0.4 X10*3/uL (0.1-1.2); Monocytes Percent Auto 7.8 % (2-11); Neutrophils Absolute Auto 2.9 x10*3/uL (2.0-8.3); Neutrophils Percent Auto 53.7 % (45-73); Platelet Count 306 X10*3/uL (160-400); Red Blood Count 4.36 X10*6/uL (4.20-5.50); Red Cell Distribution Width 13.7 % (11.0-16.0); White Blood Count 5.5 X10*3/uL (4.8-10.8)
[2023-12-04 11:25] LABS: Alanine Aminotransferase 21 U/L (0-31); Albumin Level 4.2 g/dL (3.5-5.0); Alkaline Phosphatase 49 U/L (39-117); Anion Gap 15 (12-20); Aspartate Amino Transferase 23 U/L (5-31); Bilirubin Total 0.7 mg/dL (0.0-1.0); Blood Urea Nitrogen 10 mg/dL (9-16); Calcium 9.3 mg/dL (8.4-10.2); Carbon Dioxide 26 mmol/L (22-29); Chloride 104 mmol/L (96-108); Cholesterol 177 mg/dL (<200); Estimated Glomerular Filt Rate > 60; Glucose Fasting 92 mg/dL (60-99); HDL Cholesterol 87 mg/dL (>40); LDL Cholesterol Calculated 79 mg/dL (<100); Magnesium 1.9 mg/dL (1.6-2.6); Potassium 4.2 mmol/L (3.3-5.1); Sodium 141 mmol/L (135-145); Total Protein 7.4 g/dL (6.5-8.0); Triglycerides 59 mg/dL (<150)
[2023-12-04 11:44] LABS: Free T4 (Free Thyroxine) 0.87 ng/dL (0.71-1.85); Thyroid Stimulating Hormone 0.86 uIU/mL (0.32-4.0); Vitamin D 25-OH Total 25.3 ng/mL (>30)
== END 2023-12-04 08:25 | disposition home or self-care (01) ==
LOC: HO.LAB 08:24
PROVIDERS: PCP Internal Medicine; Visit Provider Internal Medicine
DX: K21.9 Gastro-esophageal reflux disease without esophagitis (principal); R63.5 Abnormal weight gain; R00.2 Palpitations
CPT/HCPCS: 36415; 80053; 80061; 82306; 83735; 84439; 84443; 85025

== ENCOUNTER 2024-07-07 08:44 | Outpatient (REF) | payer OTHER, SELFPAY ==
--- NOTE | ~2024-07-07 | US_ITS ---
EXAMINATION: US COMPLETE ABDOMEN WITH LIVER ELASTOGRAPHY CLINICAL INFORMATION: Chronic hepatitis B COMPARISON: None available. TECHNIQUE: Real-time imaging of the abdominal viscera. Noninvasive ultrasound liver fibrosis assessment is performed using Yovany ElastPQ point quantification shear wave elastography (pSWE) with a C5-2 MHz transducer. Multiple elastography samples are obtained. FINDINGS: PANCREAS: Normal. The visualized pancreatic head and body are normal in appearance. The remainder of the pancreas is obscured from visualization by the overlying bowel gas. ABDOMINAL AORTA: The proximal, middle, and distal aortic segments are normal in caliber. INFERIOR VENA CAVA: Visualized portions are normal. LIVER: Liver echogenicity is increased suggesting hepatic steatosis.. The liver demonstrates normal size and contour. No focal lesion or intrahepatic biliary duct dilatation. The right lobe measures 12.9 cm in length. The left lobe measures 10.0 cm in length. Portal flow is towards the liver (hepatopetal). Shear wave liver elastography median stiffness is 1.54 m/s (reference: normal median stiffness is 1.3 m/s or less). IQR/median stiffness to assess sampling precision is 0.14 (reference: good quality data set is IQR/median stiffness of 0.15 or less). GALLBLADDER: A 2 mm gallbladder polyp is present.. The gallbladder is physiologically distended without evidence of stones, sludge, wall thickening or pericholecystic fluid. COMMON BILE DUCT: Normal in caliber measuring 0.2 cm in diameter. RIGHT KIDNEY: Normal. No hydronephrosis. No renal calculi or focal parenchymal lesions. The kidney measures 9.6 cm in maximum dimension. LEFT KIDNEY: Normal. No hydronephrosis. No renal calculi or focal parenchymal lesions. The kidney measures 10.9 cm in maximum dimension. SPLEEN: Normal. The spleen measures 8.3 cm in maximum dimension. FREE FLUID: None. US/US abdomen comp w elastography IMPRESSION: 1. Hepatic steatosis and a 2 mm gallbladder polyp 2. Liver elastography: In the absence of other known clinical signs, measurements rule out compensated advanced chronic liver disease. If there are known clinical signs, further testing may be needed for confirmation. REFERENCE: Society of Radiologists in Ultrasound Liver Stiffness Thresholds (2020): LIVER STIFFNESS THRESHOLDS: *Liver Stiffness equal or less than 1.3 m/s: High probability of being normal. *Liver Stiffness less than 1.7 m/s: In the absence of other known clinical signs, rules out compensated advanced chronic liver disease. *Liver Stiffness 1.7-2.1 m/s: Suggestive of compensated advanced chronic liver disease but need further test for confirmation. *Liver Stiffness over 2.1 m/s: Rules in compensated advanced chronic liver disease. *Liver Stiffness over 2.4 m/s: Suggestive of clinically significant portal hypertension. QUALITY OF DATA SET: *IQR/Median value equal or less than 0.15 implies a quality data set. *IQR/Median value over 0.15 implies a poor quality data set. SIGNIFICANT CHANGE FROM PRIOR EXAM: Significant change if liver stiffness measurement is 10% or greater from prior exam. OTHER CONSIDERATIONS: The stage of liver fibrosis may be overestimated in the setting of acute hepatitis, liver inflammation, elevated liver function tests, hepatic vascular congestion, obstructive cholestasis, non-fasting state, and infiltrative diseases such as amyloidosis and lymphoma. In some patients with NAFLD, the liver stiffness thresholds for compensated advanced chronic liver disease may be lower. In causes other than viral hepatitis and NAFLD, liver stiffness thresholds are not well established. Electronically signed by: Maciel Christianson MD 07/07/2024 04:38 PM EDT
== END 2024-07-07 08:45 | disposition home or self-care (01) ==
LOC: HO.US 08:44
PROVIDERS: PCP Internal Medicine; Visit Provider Internal Medicine
DX: B18.1 Chronic viral hepatitis B without delta-agent (principal)
CPT/HCPCS: 76700; 76981

== ENCOUNTER 2024-08-14 08:02 | Outpatient (REF) | payer OTHER, SELFPAY ==
--- NOTE | ~2024-08-14 | MR_ITS ---
EXAMINATION: MR CERVICAL SPINE WITHOUT CONTRAST CLINICAL INFORMATION: Right hand weakness. COMPARISON: Cervical spine radiograph from 06/29/2020. TECHNIQUE: MRI of the cervical spine was obtained using routine sequences without contrast. FINDINGS: Straightening of the normal cervical lordosis. Mild degenerative anterolisthesis of C2 on C3. Mild degenerative retrolisthesis of C5 on C6. Advanced degenerative disc disease at C5-C6. Moderate degenerative disc disease at C4-C5 and C6-C7. Mild degenerative disease at all additional levels. Associated mixed Modic type discogenic endplate changes including Modic type I discogenic edema from C4-C7. Mild marrow edema within the T1-T2 posterior elements consistent with degenerative stress reaction. No additional suspicious marrow edema. The vertebral body heights are well-maintained. No demonstrated spinal cord signal abnormalities. Limited evaluation of the soft tissues of the neck without demonstrated abnormalities. The flow voids of the major cervical vessels are maintained. Normal appearance of the cervicomedullary junction and visualized posterior fossa. SPINAL LEVELS: C2-C3: Mild disc-osteophyte complex. There is mild left and no right uncovertebral joint arthropathy. There is severe left and mild right facet joint arthropathy. There is moderate left and no right neural foraminal stenosis. There is no spinal canal stenosis. C3-C4: Mild disc-osteophyte complex. There is mild bilateral uncovertebral joint arthropathy. There is moderate bilateral facet joint arthropathy. There is mild bilateral neural foraminal stenosis. There is no spinal canal stenosis. C4-C5: Moderate disc-osteophyte complex. There is moderate right and mild left uncovertebral joint arthropathy. There is moderate right worse than left facet joint arthropathy. There is moderate right and mild left neural foraminal stenosis. There is no spinal canal stenosis. C5-C6: Moderate disc-osteophyte complex. There is severe left and moderate right uncovertebral joint arthropathy. There is moderate bilateral facet joint arthropathy. There is severe left and mild to moderate right neural foraminal stenosis. There is mild spinal canal stenosis. C6-C7: Moderate disc-osteophyte complex. There is moderate bilateral uncovertebral joint arthropathy. There is moderate bilateral facet joint arthropathy. There is moderate bilateral neural foraminal stenosis. There is mild spinal canal stenosis. C7-T1: Normal annular contour. There is no uncovertebral joint arthropathy. There is moderate bilateral facet joint arthropathy. There is no neural foraminal stenosis. There is no spinal canal stenosis. MR/MR cervical spine wo con IMPRESSION: Moderate multilevel degenerative spondyloarthropathy of the cervical spine as described in detail above. Most notably, there are mild spinal canal stenoses at C5-C6 and C6-C7. Moderate to severe neural foraminal stenoses from C2-C7. Electronically signed by: Derek Drake DO 08/14/2024 03:13 PM EDT
== END 2024-08-14 08:03 | disposition home or self-care (01) ==
LOC: HO.MRI 08:02
PROVIDERS: PCP Internal Medicine; Visit Provider Internal Medicine
DX: M50.81 Other cervical disc disorders, high cervical region (principal)
CPT/HCPCS: 72141

== ENCOUNTER 2024-11-14 07:30 | Outpatient (REF) | payer OTHER, SELFPAY | END 2024-11-14 07:31 | disposition home or self-care (01) | LOC: HO.MAMMO 07:30 | PROVIDERS: PCP Internal Medicine; Visit Provider Internal Medicine | DX: Z12.31 Encounter for screening mammogram for malignant neoplasm of breast (principal) | CPT/HCPCS: 77063; 77067 ==

== ENCOUNTER 2024-11-18 08:22 | Emergency (ER) | payer OTHER, SELFPAY ==
--- NOTE | ~2024-11-18 | CT_ITS ---
EXAMINATION: CT ABDOMEN PELVIS WITH IV CONTRAST HISTORY: epigastric L sided abd pain, N/V COMPARISON: Comparison is made with the prior CT of the abdomen dated 09/20/2021. TECHNIQUE: CT scan of the abdomen and pelvis was performed following administration of 85 mL Omnipaque 350 using standard departmental protocol. Coronal and sagittal reformatted images were generated and reviewed. Oral contrast material was not administered at the request of the referring physician. This CT exam was performed with one or more of the following dose reduction techniques: automated exposure control, adjustment of the mA and/or kV according to patient size, use of iterative reconstruction technique. DLP: 451 mGy-cm FINDINGS: LOWER CHEST: The visualized lung bases are clear. There is no pleural effusion. CARDIOVASCULATURE: The heart is normal in size. There is no pericardial effusion. LIVER: The liver is normal in size and contour. There is a 10 mm hypodensity in the right lobe of the liver which is too small to accurately characterize, but unchanged from the prior study. The hepatic and portal veins are patent. GALLBLADDER / BILE DUCTS: The gallbladder is unremarkable. There is no intra or extrahepatic biliary ductal dilatation. SPLEEN: The spleen is normal in size. No focal splenic lesion is identified. PANCREAS: The pancreas is unremarkable in appearance. ADRENAL GLANDS: Within normal limits. KIDNEYS/RETROPERITONEUM: No renal calculi are identified. There is no hydronephrosis. No renal masses are identified. LYMPH NODES: No abdominal or pelvic lymphadenopathy. VASCULATURE: The abdominal aorta is normal in caliber. MESENTERY/PERITONEUM: No free fluid. No masses. There is no free intraperitoneal gas. STOMACH: The stomach is collapsed, limiting evaluation. SMALL BOWEL: The small bowel is normal in caliber. COLON: The colon is unremarkable. APPENDIX: Normal. URINARY BLADDER/PELVIC ORGANS: The urinary bladder is unremarkable. IUD is noted in the endometrial cavity of the uterus. There is a 3.6 x 3.1 cm right ovarian cyst. The left ovary is unremarkable. BONES / SOFT TISSUES: There is degenerative disc disease at L4-5 and L5-S1. CT/CT abdomen pelvis w IV con IMPRESSION: 3.6 x 3.1 cm right ovarian cyst. Otherwise unremarkable contrast-enhanced CT of the abdomen and pelvis. Electronically signed by: Garrick Basurto MD 11/18/2024 11:02 AM [facility]
[2024-11-18 08:24] VITALS: BP 149/68; PULSE 89; RESP 18; TEMP 37; O2SAT 99; BMI 28.2
[2024-11-18 08:42] LABS: MANUAL DIFF FLAG NO
[2024-11-18 08:44] LABS: Basophils Percent Auto 0.5 % (0-2); Eosinophils Percent Auto 0.1 % (0-4); Hematocrit 41.5 % (37.0-47.0); Hemoglobin 14.5 g/dl (12.0-16.0); Imm Gran Abs Auto 0.03 X10*3/uL (0.00-0.03); Imm Gran Pct Auto 0.4 % (0.0-0.4); Lymphocytes Absolute Auto 1.6 X10*3/uL (1.2-4.9); Lymphocytes Percent Auto 19.1 % (20-40); Mean Corpuscular HGB Conc 34.9 g/dl (31.0-35.0); Mean Corpuscular Volume 97.4 fL (80.0-98.0); Monocytes Absolute Auto 0.5 X10*3/uL (0.1-1.2); Monocytes Percent Auto 5.8 % (2-11); Neutrophils Absolute Auto 6.1 x10*3/uL (2.0-8.3); Neutrophils Percent Auto 74.1 % (45-73); Platelet Count 280 X10*3/uL (160-400); Red Blood Count 4.26 X10*6/uL (4.20-5.50); Red Cell Distribution Width 12.2 % (11.0-16.0); White Blood Count 8.2 X10*3/uL (4.8-10.8)
[2024-11-18 08:58] LABS: UPreg QC Valid YES; Urine Pregnancy NEGATIVE (NEGATIVE)
[2024-11-18 09:03] LABS: Alanine Aminotransferase 16 U/L (0-31); Alkaline Phosphatase 52 U/L (39-117); Anion Gap 13 (12-20); Aspartate Amino Transferase 26 U/L (5-31); Bilirubin Total 0.7 mg/dL (0.0-1.0); Blood Urea Nitrogen 7 mg/dL (9-16); Calcium 8.4 mg/dL (8.4-10.2); Carbon Dioxide 22 mmol/L (22-29); Chloride 106 mmol/L (96-108); Creatinine Clr Calc Pharmacy 83.6; Estimated Glomerular Filt Rate > 60; Glucose Random 111 mg/dL (60-115); Lipase 16 U/L (8-78); Potassium 3.8 mmol/L (3.3-5.1); Sodium 137 mmol/L (135-145); Total Protein 7.5 g/dL (6.5-8.0)
--- NOTE | 2024-11-18 09:24 | ED_ITS ---
HPI - Abdominal Pain General Chief Complaint: Abdominal Pain Stated Complaint: L abd pain Time Seen by Provider: 11/18/24 09:10 Source: patient, RN notes reviewed and old records reviewed Mode of arrival: ambulatory History of Present Illness ED Provider: Maureen Munoz PA-C HPI narrative: 49 y/o female with no significant PMHx presents to the ED with constant, non- radiating left-sided flank pain and episodic vomiting x5 days in addition to chronic epigastric pain x2 months. States left lower flank/abdominal has been getting progressively worse since and episodes of vomiting are becoming more frequent. Notes vomiting typically occurs after episodes of coughing and consists of mostly mucous. Last episode of vomiting at 0400 this AM. Unknown LMP due to IUD. Denies any blood in vomit. Denies fever/chills, nausea, chest pain, SOB, diarrhea/constipation, dysuria, hematuria, incontinence, vaginal discharge/bleeding, muscles aches/pains, or new rashes. Denies any recent travel or dietary changes. Related Data Home Medications ?Medication ?Instructions ?Recorded ?Confirmed Vitamin C 02/09/22 cholecalciferol (vitamin D3) 25 25 mcg PO DAILY 11/07/22 mcg (1,000 unit) capsule levonorgestrel 21 mcg/24 hr (up to intrauterine 11/07/22 8 years) 52 mg intrauterine device (Mirena) Previous Rx's ?Medication ?Instructions ?Recorded ondansetron 4 mg disintegrating 4 mg PO Q8H PRN nausea and 11/18/24 tablet vomiting #10 tabs Allergies Allergy/AdvReac Type Severity Reaction Status Date / Time No Known Allergies Allergy Verified 11/18/24 08:26 Review of Systems Review of Systems Yes all other systems are reviewed and are negative Constitutional: Reports as per HPI [facility] Past Medical History Attestation statement: The following information was validated with the patient. Source: old records reviewed Medical History Chronic hepatitis B Surgical History Hx of esophagogastroduodenoscopy History of section History of orthopedic surgery History of breast biopsy Family History Family History Paternal Grandmother Breast cancer Social History Social History Household Members: Spouse Household Members Other:: daughter Housing: House Alcohol intake: current Alcohol intake frequency: a few times a week Patient Tobacco Use Status: Never used Tobacco Smoked in Last 30 Days: No Advance Directives: No Advance Directives Information Provided: Yes Advance Directives Date on File: 08/02/20 Patient : No Current occupational status: employed 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[employer] [place] Sexual orientation: Straight/Heterosexual Gender identity: Female Physical Exam ED Vital Signs: Vital Signs - 24 hr 11/18/24 08:24 11/18/24 09:44 11/18/24 11:33 Temperature 98.6 F 99.2 F Pulse Rate 89 78 77 Respiratory Rate 18 16 18 Blood Pressure 149/68 H 140/69 H 127/65 Pulse Oximetry 99 97 99 Oxygen Delivery Method Room Air Room Air Room Air BMI result Body Mass Index 28.2 Const General: cooperative, healthy appearing and no acute distress Orientation/consciousness: patient oriented x3 Limitations: no limitations HENMT Head: Yes normal to inspection and Yes atraumatic Ears: hearing grossly normal bilaterally General nose exam: Normal external nose present Face and sinus: Yes normal facial exam Eyes General: appearance normal, both eyes and all related structures EOM: EOMs intact bilaterally Neck Neck: Yes normal visual inspection and Yes no meningeal signs Resp Effort & Inspection: normal respiratory effort and no respiratory distress Auscultation: clear to auscultation bilaterally Cardio Rate: regular rate Heart sounds: S1 normal heart sound present and S2 normal heart sound present GI Inspection: Yes normal to inspection Palpation (GI): Soft to palpation, Tenderness to palpation present (GI) in the epigastrum, in the LLQ and in the LUQ; with no rebound tenderness, no guarding and not rigid General: Yes no CVA tenderness Back/Spine/Pelvis Back: no CVA tenderness Skin Rashes: no rashes Wounds: no wounds Neuro General: patient oriented x3, tone normal and no meningeal signs Cranial nerves: Yes CN's II-XII intact bilaterally Gait exam (Neuro): Normal gait present Extrem General: Yes normal to inspection Course Course Course Narrative: -1110-- labs reassuring. UA with 80 ketones, not infected CT abdomen pelvis w IV con IMPRESSION: 3.6 x 3.1 cm right ovarian cyst. Otherwise unremarkable contrast-enhanced CT of the abdomen and pelvis. > on re-evaluation patient appears comfortable in stretcher. Results discussed with patient > Discussed recommended follow up with PCP/GI. Discussed worrisome signs and symptoms and strict return precautions, and when to return to the emergency department. They verbalized understanding and feel safe for discharge at this time. Medical Decision Making Medical Decision Making MDM Narrative: 49 y/o female with no significant PMHx presents to the ED with constant, non- radiating left-sided flank pain and episodic vomiting x5 days in addition to chronic epigastric pain x2 months. on exam vital signs stable, NAD, nontoxic appearing, abdomen soft with epigastric / left upper and lower tenderness, no rebound or guarding, no left CVAT. No rash. Concern for GERD/gastritis vs pancreatitis vs diverticulitis vs colitis vs ? mm stone or pyelo. Low suspicion for ovarian torsion or appendicitis or ischemic bowel Plan: Labs, UA, EKG, UA, CT AP, IVF, pain control, re-evaluate Please refer to course for remaining clinical decision making, interpretation of labs/imaging results, and discussions with consultants and/or family members. Differential Diagnosis Differential Diagnoses: The differential diagnosis associated with the presentation includes As above Admission/Observation Consideration of admission/observation: Escalation of care including admission/observation considered Lab Data [facility] Lab Attestation statement: I reviewed the patient's lab results. 11/18/24 08:39 11/18/24 08:39 Labs: Lab Results 11/18/24 11/18/24 11/18/24 Range/Units 08:39 08:46 08:48 WBC 8.2 (4.8-10.8) X10*3/uL RBC 4.26 (4.20-5.50) X10*6/uL Hgb 14.5 (12.0-16.0) g/dl Hct 41.5 (37.0-47.0) % MCV 97.4 (80.0-98.0) fL MCH 34.0 H (27.0-33.0) pg MCHC 34.9 (31.0-35.0) g/dl RDW 12.2 (11.0-16.0) % Plt Count 280 (160-400) X10*3/uL MPV 9.0 L (9.4-12.3) fL Immature Gran % (Auto) 0.4 (0.0-0.4) % Neut % (Auto) 74.1 H (45-73) % Lymph % (Auto) 19.1 L (20-40) % [place] % (Auto) 5.8 (2-11) % Eos % (Auto) 0.1 (0-4) % Baso % (Auto) 0.5 (0-2) % Lymph # (Auto) 1.6 (1.2-4.9) X10*3/uL [place] # (Auto) 0.5 (0.1-1.2) X10*3/uL Eos # (Auto) 0.0 (0.0-0.4) X10*3/uL Baso # (Auto) 0.0 (0.0-0.2) X10*3/uL Abs Immat Gran (auto) 0.03 (0.00-0.03) X10*3/uL Absolute Neuts (auto) 6.1 (2.0-8.3) x10*3/uL Absolute Nucleated RBC 0.000 (0.0-0.012) X10*3/uL Nucleated RBC % (auto) 0.0 (0.0-0.2) /100WBC Sodium 137 (135-145) mmol/L Potassium 3.8 (3.3-5.1) mmol/L Chloride 106 (96-108) mmol/L Carbon Dioxide 22 (22-29) mmol/L Anion Gap 13 (12-20) BUN 7 L (9-16) mg/dL Creatinine 0.68 (0.5-1.4) mg/dL Estim Creat Clear Calc 83.6 Estimated GFR > 60 Random Glucose 111 (60-115) mg/dL Calcium 8.4 D (8.4-10.2) mg/dL Magnesium 1.8 (1.6-2.6) mg/dL Total Bilirubin 0.7 (0.0-1.0) mg/dL AST 26 (5-31) U/L ALT 16 (0-31) U/L Alkaline Phosphatase 52 (39-117) U/L Total Protein 7.5 (6.5-8.0) g/dL Albumin 4.0 (3.5-5.0) g/dL Lipase 16 (8-78) U/L Urine Color Yellow Urine Appearance Clear Urine pH 5.5 (5.0-9.0) Ur Specific [place] 1.020 (1.005-1.025) Urine Protein Trace (Neg-Trace) mg/dL Urine Glucose (UA) Negative (Negative) mg/dL Urine Ketones 80 (Negative) mg/dL Urine Blood Negative (Negative) Urine Nitrite Negative (Negative) Ur Leukocyte Esterase Negative (Negative) Urine Test NEGATIVE (NEGATIVE) Independent Interpretation I performed an independent interpretation of an: EKG and CT Scan Radiology Impression Discussion of test interpretation with radiology: I have reviewed the radiologist's reading. External Record Review External record reviewed: Inpatient record, Office record, Outpatient record, Prior outpatient labs, Prior outpatient radiology, Primary care record and Outside ED record Tests considered The following testing was considered but not selected: As above Prescription Management I considered prescription management with: Pain Medication Chronic Conditions Patient?s care impacted by: Other Medications Administered Discontinued Medications Generic Name Dose Route Start Last Admin Trade Name Freq PRN Reason Stop Dose Admin Sodium Chloride 1,000 mls @ 999 mls/hr 11/18/24 09:45 11/18/24 10:48 Ns IV 11/18/24 10:45 Infused .Q1H1M WILLI Infusion Iohexol 85 ml 11/18/24 10:36 11/18/24 10:37 Iohexol 350 Mg/Ml 100 Ml Infus..Btl IV 11/18/24 10:37 85 ml ONCE ONE Administration Ketorolac Tromethamine 15 mg 11/18/24 09:42 11/18/24 09:54 Ketorolac Tromethamine 15 Mg/Ml Vial IVPUSH 11/18/24 09:43 15 mg ONCE ONE Administration Ondansetron HCl 4 mg 11/18/24 09:42 11/18/24 09:54 Ondansetron Hcl 4 Mg/2 Ml Vial IVPUSH 11/18/24 09:43 4 mg ONCE ONE Administration Discharge Plan Discharge Clinical Impression: Left sided abdominal pain, Ovarian cyst Patient Disposition: Home, Self-Care Instructions: Ovarian Cyst (ED), Abdominal Pain (ED) Additional Instructions: your blood work is reassuring. Your urine shows evidence of dehydration Your CT scan shows a 3.6 x 3.1 right-sided ovarian cyst, otherwise your CT scan was unremarkable Please have close follow-up with your primary care doctor as well as Gastroenterology, Dr. Johnson, call to make an appointment Zofran as for nausea, take as needed for nausea/ vomiting If her pain persists or worsens / becomes unbearable, you persistent nausea / vomiting or unremitting pain return to the emergency department Prescriptions: New ondansetron 4 mg tablet,disintegrating 4 mg PO Q8H PRN (Reason: nausea and vomiting) Qty: 10 0RF No Action Vitamin C cholecalciferol (vitamin D3) 25 mcg (1,000 unit) capsule 25 mcg PO DAILY Mirena 20 mcg/24 hours (8 yrs) 52 mg intrauterine device intrauterine Referrals: Pedro Lutz MD [Primary Care Provider] - Garrick Johnson MD [Physician] - Stand Alone Forms: Work/School Release Interventions: ED Discharge Assessment Last Done: 11/18/24 11:33 Discharge Date/Time: 11/18/24 11:35 Print Language: Amharic
[2024-11-18 09:44] VITALS: BP 140/69; PULSE 78; RESP 16; O2SAT 97
[2024-11-18] MEDS: Ketorolac Tromethamine 15 MG/ML VIAL IVPUSH (09:54)
[2024-11-18] MEDS: ondansetron HCL 4 MG/2 ML VIAL IVPUSH (09:54)
[2024-11-18] MEDS: 0.9 % Sodium Chloride 1,000 ML 999 ML IV (09:54)
[2024-11-18 09:59] LABS: Appearance Urine Clear; Color Urine Yellow; Glucose Urine UA Negative (Negative); Leukocyte Esterase Urine Negative (Negative); Nitrite Urine Negative (Negative); PH 5.5 (5.0-9.0); Urine Blood Negative (Negative); Urine Ketones 80 mg/dL (Negative); Urine Protein Trace mg/dL (Neg-Trace)
[2024-11-18 10:04] LABS: Magnesium 1.8 mg/dL (1.6-2.6)
--- NOTE | 2024-11-18 10:14 | ECG_ITS ---
Test Reason : abdominal pain Blood Pressure : */* mmHG Vent. Rate : 75 BPM Atrial Rate : 75 BPM P-R Int : 166 ms QRS Dur : 82 ms QT Int : 420 ms P-R-T Axes : 4 2 20 degrees QTcB Int : 469 ms Normal sinus rhythm Septal infarct , age undetermined Abnormal ECG When compared with ECG of 23-Apr-2014 09:04, No significant change was found Referred By: Maureen Munoz Electronically Signed By: GIO HOLLOWAY MD
[2024-11-18] MEDS: iohexoL 350 MG/ML 100 ML INFUS..BTL 85 ML IV (10:37)
[2024-11-18 11:33] VITALS: BP 127/65; PULSE 77; RESP 18; TEMP 37.3; O2SAT 99
== END 2024-11-18 11:35 | disposition home or self-care (01) ==
PROVIDERS: Physician Assistant; Emergency Provider Emergency Medicine; PCP Internal Medicine
DX: N83.202 Unspecified ovarian cyst, left side (principal); R10.2 Pelvic and perineal pain; R11.2 Nausea with vomiting, unspecified; R10.13 Epigastric pain; R94.31 Abnormal electrocardiogram [ECG] [EKG]; Z79.899 Other long term (current) drug therapy
CPT/HCPCS: 36415; 74177; 80053; 81003; 81025; 83690; 83735; 85025; 93005; 96361; 96374; 96375; 99284; 99285; J1885; J2405; Q9967

== ENCOUNTER → 2024-11-18 09:42 | Outpatient (BNV) | payer OTHER, SELFPAY | PROVIDERS: Emergency Provider Emergency Medicine; PCP Internal Medicine; Visit Provider Radiology Diagnostic Radiology | DX: N83.201 Unspecified ovarian cyst, right side (principal) | CPT/HCPCS: 74177 ==

== ENCOUNTER → 2024-11-18 10:14 | Outpatient (BNV) | payer OTHER, SELFPAY | PROVIDERS: Emergency Provider Emergency Medicine; PCP Internal Medicine; Visit Provider Internal Medicine Cardiovascular Disease | DX: R94.31 Abnormal electrocardiogram [ECG] [EKG] (principal) | CPT/HCPCS: 93010 ==

== ENCOUNTER 2025-02-05 07:37 | Outpatient (AMB) | payer OTHER, SELFPAY ==
--- OUTSIDE RECORDS SUMMARY | 2025-02-05 07:39 | XMS_ITS ---
Author Organization [facility] Address [address] [place] [id number] Care Team Providers Care Cooler Tender Name Role Phone Pedro Lutz MD Primary Care Provider De JohnsonGarrick Rodger [phone] Allergies No Known Allergies REASON FOR VISIT Patient presents today for Hep b Medications Medication SIG (Take, Route, Frequency, Duration) Notes Start Date End Date Status Motrin PRN Active Problems Problem Type SNOMED Code ICD Code Onset Dates Problem Status W/U Status Risk Notes Problem Vomiting ([id number]) Vomiting (R11.10) Active confirmed Vital Signs Temperature 97.8 degrees Fahrenheit 06/27/20 24 Blood pressure systolic 000 mm Hg 06/27/20 24 Blood pressure diastolic 00 mm Hg 024 Height 59.5 in 06/27/2024 Weight 144 lb 4 oz lbs 06/27/2024 BMI 28.64 kg/m2 06/27/2024 Encounters Encounter Location Date Provider Diagnosis [facility] [address] [place] [id number] 06/27/2024 Garrick Johnson Chronic hepatitis B B18.1 and Vomiting R11.10 Assessments Encounter Date Diagnosis (ICD Code) Assessment Notes Treatment Notes Treatment Clinical Notes Section Notes 06/27/2024 Chronic hepatitis B (ICD-10 - B18.1) Overall, Aquiles appears quite well. At this time she does not show any signs nor have any symptoms of liver disease. Her long-standing chronic hepatitis B appears to be quite stable and inactive. I shall check the usual laboratories including a hepatitis B DNA level, alpha-fetoprotei n level, and liver fibrosis score. I shall also check a followup abdominal ultrasound. We did review that I will plan to see her in one year for followup as we usually do. In regard to her intermittent episodes of vomiting, this does not sound particularly worrisome at this time given the infrequent nature and no other worrisome symptoms whatsoever on a chronic basis. She did have a negative upper endoscopy in 2020 as well, and also negative imaging studies including a CT and ultrasound of the abdomen. I don't think she needs any medication for this as she is otherwise asymptomatic the great majority of the time. I advised her to let me know if this worsens and becomes more frequent, or becomes associated with any other symptoms such as abdominal pain, jaundice, or bleeding. Aquiles was very comfortable with this plan. Thank you again for allowing me to participate in Aquiles'a care. I shall continue to keep you advised of her progress. 06/27/2024 Vomiting (ICD-10 - R11.10) Overall, Aquiles appears quite well. At this time she does not show any signs nor have any symptoms of liver disease. Her long-standing chronic hepatitis B appears to be quite stable and inactive. I shall check the usual laboratories including a hepatitis B DNA level, alpha-fetoprotei n level, and liver fibrosis score. I shall also check a followup abdominal ultrasound. We did review that I will plan to see her in one year for followup as we usually do. In regard to her intermittent episodes of vomiting, this does not sound particularly worrisome at this time given the infrequent nature and no other worrisome symptoms whatsoever on a chronic basis. She did have a negative upper endoscopy in 2020 as well, and also negative imaging studies including a CT and ultrasound of the abdomen. I don't think she needs any medication for this as she is otherwise asymptomatic the great majority of the time. I advised her to let me know if this worsens and becomes more frequent, or becomes associated with any other symptoms such as abdominal pain, jaundice, or bleeding. Aquiles was very comfortable with this plan. Thank you again for allowing me to participate in Barbara green. I shall continue to keep you advised of her progress. Plan Of Treatment Pending Test Test Name Order Date LIVER PROFILE 06/27/2024 CBC w DIFF 06/27/2024 ALPHA-FETOPROTEIN,TUMOR MARKER HEPATITIS B DNA QN PCR RFLX HBV GENOTYPE 06/27/2024 Prothrombin Time INR 06/27/2024 Liver Fibrosis Pnl 06/27/2024 US abdomen comp w elastography Next Appt Details Follow Up: 1 Year, Reason: Provider Name:Garrick Johnson , 06/25/2025 09:40:00 AM, [address], [address], [place], [address], Progress Notes * AQUILES WHITTDOB:1975 (49 yo F)Acc No.[id number]:06/27/2024 Progress Notes Patient:?AQUILES WHITT Provider:?Garrick Johnson MD :1975???Age:49 Y???Sex:Female D ate:06/27/2024 Address:[place] [address] Pcp:Pedro Lutz MD Subjective: * Chief Complaints: * ???Patient presents today fo r Hep b * HPI: ???incontinence:? I saw Aquiles in followup today in regard to her chronic hepatitis B infection and occasional vomiting. ?I last saw Aquiles in February of 2023. Since that time she has basically been feeling well. However, she does describe occasional episodes of sudden nausea and vomiting. These episodes can usually occur in the morning after wakening, but occasionally can occur during the day as well. However, in general these episodes are infrequent. She describes one episode about every 2 weeks or so. These episodes are usually short-lived, but occasionally can last for a while. They are never associated with any signs of bleeding, abdominal pain, fevers, jaundice, nor any preceding symptoms such as heartburn. She denies any dysphagia, anorexia, early satiety, weight loss, change in bowel habits, hematochezia, or melena. She denies any increasing abdominal girth, pruritus, edema, nor fatigue. ?Laboratories from November 2023 revealed a normal CBC with platelet count and a normal liver profile. ?In February of 2023 she had an unremarkable abdominal ultrasound, a minimally elevated hepatitis B viral DNA, a normal alpha-fetoprotein level, a normal liver profile, and a liver fibrosis score of F0. * ROS:?General/Constitutional:?Change in appetite?denies.?Chills?denies.?Fatigue?denies.?Ophthalmologic:?Comments?all negative.?ENT:?Comments?all negative.?Respiratory:?hemoptysis?denies.?Cough?denies.?Cardiovascular:?Chest pain?denies.?Orthopnea?denies.?Gastrointestinal:?Comments?See HPI for details.?Genitourinary:?Hematuria?denies.?Dysuria?denies.?Musculoskeletal:?Painful joints?denies.?Weakness?denies.?Skin:?Itching?denies.?Rash?denies.?Neurologic:?Headache?denies.?Seizures?denies.?Psychiatric:?Comments?all negative.? * Medical History:? * Surgical History:?C- section Foot surgery right Breast [id number] * Hospitalization/Major Diagno stic Procedure:?No Hospitalization History. * Family History:?Father: carlyn rosales, diagnosed with Heart disease.?Mother: alive.? Denies family hx colon cancer, colon polyps or liver disease. * Social History:?Tobacco Use:?Tobacco Use/Smoking?Are you a: nonsmoker.?Drugs/Alcohol:?Alcohol Screen?Points: 1, Interpretation: Negative.?Miscellaneous:?Marital status: . 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 Others at home: and 2 daughters--she reports that they have all been vaccinated for hepatitis B. ???Nonsmoker; occasional alcohol. * Medications:?TakingMotrin , Notes: PRNMedication List reviewed and reconciled with the patientTaking Blaine , Notes: PRNMedication List reviewed and reconciled with the patient * Allergies:?N.K.D.A.yes[Aller gies Verified] Objective: * Vitals:?Wt: 144 lb 4 oz, Ht: 59.5 in, BMI:28.64 Index, BP: 000/00 mm Hg, Temp: 97.8. * Examination: ???General Examination: ?GENERAL APPEARANCE:?pleasant, well nourished, well developed, in no acute distress.?EYES:?sclera non-icteric.?ORAL CAVITY:?mucosa moist.?NECK/THYROID:?no cervical lymphadenopathy, neck supple.?SKIN:?nonjaundiced, no spider angiomata.?HEART:?S1, S2 normal.?LUNGS:?clear to auscultation bilaterally.?ABDOMEN:?normal bowel sounds, no guarding or rigidity, no guarding or rigidity, no masses palpable, soft, nontender, nondistended.?EXTREMITIES:?no edema.?NEUROLOGIC:?alert and oriented.? Assessment: * Assessment: 1.?Chronic hepatitis B - B18 .1 (Primary)?2.?Vomiting - R11.10? Overall, Aquiles appears quit e well. At this time she does not show any signs nor have any symptoms of liver disease. Her long-standing chronic hepatitis B appears to be quite stable and inactive. I shall check the usual laboratories including a hepatitis B DNA level, alpha-fetoprotein level, and liver fibrosis score. I shall also check a followup abdominal ultrasound. We did review that I will plan to see her in one year for followup as we usually do. In regard to her intermittent episodes of vomiting, this does not sound particularly worrisome at this time given the infrequent nature and no other worrisome symptoms whatsoever on a chronic basis. She did have a negative upper endoscopy in 2020 as well, and also negative imaging studies including a CT and ultrasound of the abdomen. I don't think she needs any medication for this as she is otherwise asymptomatic the great majority of the time. I advised her to let me know if this worsens and becomes more frequent, or becomes associated with any other symptoms such as abdominal pain, jaundice, or bleeding. Aquiles was very comfortable with this plan. Thank you again for allowing me to participate in Aquiles'alex care. I shall continue to keep you advised of her progress. Plan: * Treatment: * * Procedure Codes:?3017F COLOR ECTAL CA SCREEN DOC [id number] TOBACCO [id number] BP SCR NOT PRFRM REC REASON NOS * Preventive Medicine:? ??Counseling:?Care goal follow-up plan:?Above Normal BMI Follow-up?Giving encouragement to exercise,?BMI management provided?Yes.? * Follow Up:?1 Year * * Sign off status: Completed true * Provider:?Garrick Johnson MD Date:? 024 Generated for Lucyi polo/Shiv/eTransmitting on:?02/05/2025 07:39 AM EDT History and Physical Notes * HPI (History of Present Illness) Category Sub-Category Detail Notes Category Not es incontinence I saw Aquiles in followup today in regard to her chronic hepatitis B infection and occasional vomiting. I last saw Aquiles in February of 2023. Since that time she has basically been feeling well. However, she does describe occasional episodes of sudden nausea and vomiting. These episodes can usually occur in the morning after wakening, but occasionally can occur during the day as well. However, in general these episodes are infrequent. She describes one episode about every 2 weeks or so. These episodes are usually short-lived, but occasionally can last for a while. They are never associated with any signs of bleeding, abdominal pain, fevers, jaundice, nor any preceding symptoms such as heartburn. She denies any dysphagia, anorexia, early satiety, weight loss, change in bowel habits, hematochezia, or melena. She denies any increasing abdominal girth, pruritus, edema, nor fatigue. Laboratories from November 2023 revealed a normal CBC with platelet count and a normal liver profile. In February of 2023 she had an unremarkable abdominal ultrasound, a minimally elevated hepatitis B viral DNA, a normal alpha-fetoprotein level, a normal liver profile, and a liver fibrosis score of F0. Examination Category Sub-Category Detail Notes Category Not es General Examination GENERAL APPEARANCE: pleasant , well nourished, well developed, in no acute distress HEAD: EYES: sclera non-icteric EARS: NOSE: THROAT: NECK/THYROID: no cervical lymphade nopathy, neck supple HEART: S1, S2 normal CHEST: LUNGS: clear to auscultatio n bilaterally ABDOMEN: normal bowel sounds, no guarding or rigidity, no guarding or rigidity, no masses palpable, soft, nontender, nondistended NEUROLOGIC: alert and oriented SKIN: nonjaundiced, no spi marlene angiomata EXTREMITIES: no edema PERIPHERAL PULSES: BACK: BREASTS: MUSCULOSKELETAL: MALE GENITOURINARY: LYMPH NODES: RECTAL EXAM: FEMALE GENITOURINARY: ORAL CAVITY: mucosa moist
--- OUTSIDE RECORDS SUMMARY | 2025-02-05 07:39 | XMS_ITS ---
Author Organization [facility] Address [address] [place] [address] Care Team Providers Care Manager Site Name Role Phone Pedro Lutz MD Primary Care Provider Garrick Leiva [phone] REASON FOR VISIT FYI Encounters Encounter Location Date Provider Diagnosis [facility] [address] [place] [address] 01/19/2025 Garrick Johnson Plan Of Treatment Next Appt Details Provider Name:Garrick Johnson , 06/25/2025 09:40:00 AM, [address], [address], [place], [address], Progress Notes * AQUILES WHITTDOB:1975 (49 yo F)Acc No.[id number]:01/19/2025 Patient:?AQUILSE WHITT :1975???Age:49 Y???Sex:Female Address:[facility] [address] [place] [address] * true * Date:? Generated for Printi polo/Shiv/eTransmitting on:?02/05/2025 07:39 AM EDT
--- OUTSIDE RECORDS SUMMARY | 2025-02-05 07:40 | XMS_ITS | Patient Health Record ---
Author Organization [facility] Address [address] [place] [address] Care Team Providers Care Brick Sorter Name Role Phone Pedro Lutz MD Primary Care Provider Estephaniaa Garrick Charlton [phone] Allergies No Known Allergies Results Component Value Reference Range Notes US abdomen comp w elastograp hy Reviewed date:11/20/2024 02:18:05 PM Interpretation: Performing Lab: Notes/Report: [address] [address] Ultrasound Report Signed Patient: Coreen Whitt MR#: [id number] : 1975 Acct:[id number] Age/Sex: 49 / F ADM Date: 07/07/24 Loc: HO.US Attending Dr: Garrick Johnson MD Ordering Physician: Garrick Johnson MD Date of Service: 07/07/24 Procedure(s): US abdomen comp w elastography Accession Number(s): [id number] cc: Pedro Lutz MD; Garrick Johnson MD EXAMINATION: US COMPLETE ABDOMEN WITH LIVER ELASTOGRAPHY CLINICAL INFORMATION: Chronic hepatitis B COMPARISON: None available. TECHNIQUE: Real-time imaging of the abdominal viscera. Noninvasive ultrasound liver fibrosis assessment is performed using Yovany ElastPQ point quantification shear wave elastography (pSWE) with a C5-2 MHz transducer. Multiple elastography samples are obtained. FINDINGS: PANCREAS: Normal. The visualized pancreatic head and body are normal in appearance. The remainder of the pancreas is obscured from visualization by the overlying bowel gas. ABDOMINAL AORTA: The proximal, middle, and distal aortic segments are normal in caliber. INFERIOR VENA CAVA: Visualized portions are normal. LIVER: Liver echogenicity is increased suggesting hepatic steatosis.. The liver demonstrates normal size and contour. No focal lesion or intrahepatic biliary duct dilatation. The right lobe measures 12.9 cm in length. The left lobe measures 10.0 cm in length. Portal flow is towards the liver (hepatopetal). Shear wave liver elastography median stiffness is 1.54 m/s (reference: normal median stiffness is 1.3 m/s or less). IQR/median stiffness to assess sampling precision is 0.14 (reference: good quality data set is IQR/median stiffness of 0.15 or less). GALLBLADDER: A 2 mm gallbladder polyp is present.. The gallbladder is physiologically distended without evidence of stones, sludge, wall thickening or pericholecystic fluid. COMMON BILE DUCT: Normal in caliber measuring 0.2 cm in diameter. RIGHT KIDNEY: Normal. No hydronephrosis. No renal calculi or focal parenchymal lesions. The kidney measures 9.6 cm in maximum dimension. LEFT KIDNEY: Normal. No hydronephrosis. No renal calculi or focal parenchymal lesions. The kidney measures 10.9 cm in maximum dimension. SPLEEN: Normal. The spleen measures 8.3 cm in maximum dimension. FREE FLUID: None. US/US abdomen comp w elastography IMPRESSION: 1. Hepatic steatosis and a 2 mm gallbladder polyp 2. Liver elastography: In the absence of other known clinical signs, measurements rule out compensated advanced chronic liver disease. If there are known clinical signs, further testing may be needed for confirmation. REFERENCE: Society of Radiologists in Ultrasound Liver Stiffness Thresholds (2020): LIVER STIFFNESS THRESHOLDS: *Liver Stiffness equal or less than 1.3 m/s: High probability of being normal. *Liver Stiffness less than 1.7 m/s: In the absence of other known clinical signs, rules out compensated advanced chronic liver disease. *Liver Stiffness 1.7-2.1 m/s: Suggestive of compensated advanced chronic liver disease but need further test for confirmation. *Liver Stiffness over 2.1 m/s: Rules in compensated advanced chronic liver disease. *Liver Stiffness over 2.4 m/s: Suggestive of clinically significant portal hypertension. QUALITY OF DATA SET: *IQR/Median value equal or less than 0.15 implies a quality data set. *IQR/Median value over 0.15 implies a poor quality data set. SIGNIFICANT CHANGE FROM PRIOR EXAM: Significant change if liver stiffness measurement is 10% or greater from prior exam. OTHER CONSIDERATIONS: The stage of liver fibrosis may be overestimated in the setting of acute hepatitis, liver inflammation, elevated liver function tests, hepatic vascular congestion, obstructive cholestasis, non-fasting state, and infiltrative diseases such as amyloidosis and lymphoma. In some patients with NAFLD, the liver stiffness thresholds for compensated advanced chronic liver disease may be lower. In causes other than viral hepatitis and NAFLD, liver stiffness thresholds are not well established. Electronically signed by: Maciel Christianson MD 07/07/2024 04:38 PM EDT RP Dictated By: Maciel Christianson MD Signed By: <Electronically signed by Maciel Christianson MD in OV> 07/07/24 1638 DD/ 0859 TD/TT: 07/07/24920 Automatic Fabric Cutter: [place] [address] Ultrasound Report Signed Patient: James Whitt MR#: [id number] : 1975 Acct:[id number] Age/Sex: 49 / F ADM Date: 07/07/24 Loc: HO.US Attending Dr: Garrick Johnson MD Ordering Physician: Garrick Johnson MD Date of Service: 07/07/24 Procedure(s): US abd omen comp w elastography Accession Number(s): [id number] cc: Pedro Lutz MD ; Garrick Johnson MD EXAMINATION: US COMPLETE ABDOMEN WITH LIVER ELASTOGRAPHY CLINICAL INFORMATION: Chronic hepatitis B COMPARISON: None available. TECHNIQUE: Real-time imaging of the abdominal viscera. Noninvasive ultrasound liver fibrosis asses sment is performed using Yovany ElastPQ point quantification shear wave elastography (pSWE) with a C5-2 MHz transducer. Multiple elastography samples are obtained. FINDINGS: PANCREAS: Normal. Th e visualized pancreatic head and body are normal in appearance. The loretta minda of the pancreas is obscured from visualization by the overlying bowel gas. ABDOMINAL AORTA: The proximal, middle, and distal aortic segments are normal in caliber. INFERIOR VENA CAVA: Visualized portions are normal. LIVER: Liver echogen icity is increased suggesting hepatic steatosis.. The liver demonstrat es normal size and contour. No focal lesion or intrahepatic biliary duct dilatation. The right lobe measu res 12.9 cm in length. The left lobe measures 10.0 cm in length. Portal flow is towar ds the liver (hepatopetal). Shear wave liver [place]ol[place] stography median stiffness is 1.54 m/s (reference: normal median stiffn ess is 1.3 m/s or less). IQR/median stiffness to assess sampling precision is 0.14 (reference: good quality data se t is IQR/median stiffness of 0.15 or less). GALLBLADDER: A 2 mm gallbladder polyp is present.. The gallbladder is physiologically dist ended without evidence of stones, sludge, wall thickening or perich olecystic fluid. COMMON BILE DUCT: No rmal in caliber measuring 0.2 cm in diameter. RIGHT KIDNEY: Normal . No hydronephrosis. No renal calculi or focal parenchymal lesions. The kidney measures 9.6 cm in maximum dimension. LEFT KIDNEY: Normal. No hydronephrosis. No renal calculi or focal parenchymal lesions. The kidney measures 10.9 cm in maximum dimension. SPLEEN: Normal. The spleen measures 8.3 cm in maximum dimension. FREE FLUID: None. U S/US abdomen comp w elastography IMPRESSION: 1. Hepatic steatosis and a 2 mm gallbladder polyp 2. Liver elastograph y: In the absence of other known clinical signs, measurements rule ou t compensated advanced chronic liver disease. If there are known clin ical signs, further testing may be needed for confirmation. REFERENCE: Society of Radiologi sts in Ultrasound Liver Stiffness Thresholds (2020): LIVER STIFFNESS THRESHOLDS: *Liver Stiffness equ al or less than 1.3 m/s: High probability of being normal. *Liver Stiffness les s than 1.7 m/s: In the absence of other known clinical signs, rule s out compensated advanced chronic liver disease. *Liver Stiffness 1.7 -2.1 m/s: Suggestive of compensated advanced chronic liver diseas e but need further test for confirmation. *Liver Stiffness ove r 2.1 m/s: Rules in compensated advanced chronic liver disease. *Liver Stiffness ove r 2.4 m/s: Suggestive of clinically significant portal hypertension. QUALITY OF DATA SET: *IQR/Median value eq ual or less than 0.15 implies a quality data set. *IQR/Median value ov er 0.15 implies a poor quality data set. SIGNIFICANT CHANGE F ROM PRIOR EXAM: Significant change i f liver stiffness measurement is 10% or greater from prior exam. OTHER CONSIDERATIONS: The stage of liver f ibrosis may be overestimated in the setting of acute hepatitis, minnie er inflammation, elevated liver function tests, hepatic vascular con gestion, obstructive cholestasis, non-fasting state, and infiltrat rubio diseases such as amyloidosis and lymphoma. In some patients with N AFLD, the liver stiffness thresholds for compensated advanced chronic liver disease may be lower. In causes other than viral hep atitis and NAFLD, liver stiffness thresholds are not well established. Electronically adrienne d by: Maciel Christianson MD 07/07/2024 04:38 PM EDT RP Dictated By: Maciel Christianson MD Signed By: <Electron ically signed by Maciel Christianson MD in OV> 07/07/24 1638 DD/ 0859 TD/TT: 07/07/24 0921 Automatic Fabric Cutter: SS Reason For Referral No Information Medications Medication SIG (Take, Route, Fr equency, Duration) Notes Start Date End Date Status Motrin PRN Active Omeprazole 40 MG 1 capsule 1/2 to 1 h our before morning meal Orally Once a day for 30 day(s) 11/19/2024 Active Immunizations Vaccine Route Administration Date Status Comme nts Influenza Unknown 08/29/2018 Administered Influenza Unknown 08/04/2020 Administered Influenza Unknown 08/29/2021 Administered Influenza Unknown 08/21/2023 Administered Problems Problem Type SNOMED Code ICD Code Onset Dates Problem Status W/U Status Risk Notes Problem 12282249 Epigastric abdominal pain (R10.13) Active confirmed Problem 392387125 Encounter for screening for malignant neoplasm of colon (Z12.11) Active confirmed Problem 57548965 Chronic hepatitis B (B18.1) Active confirmed Problem 889464871 RUQ abdominal pain (R10.11) Active confirmed Problem Vomiting (952404139) Vomiting (R11.10) Active confirmed Vital Signs Temperature 97.8 degrees Fahrenheit 06/27/2024 Blood pressure diastolic 00 mm Hg 06/27/2024 Height 59.5 in 06/27/2024 Blood pressure systolic 000 mm Hg 06/27/2024 Weight 144 lb 4 oz lbs 06/27/2024 BMI 28.64 kg/m2 06/27/2024 Encounters Encounter Location Date Provider Diagnosis [facility] [address] [place] [address] 06/27/2024 Garrick Johnson Chronic hepatitis B B18.1 and Vomiting R11.10 [facility] [address] [place] [address] 11/18/2024 [facility] [address] [place] [address] 01/19/2025 Garrick Johnson Assessments Encounter Date Diagnosis (ICD Code) Assessment Notes Treatment Notes Treatment Clinical Notes Section Notes 06/27/2024 Chronic hepatitis B (ICD-10 - B18.1) Overall, Coreen appears quite well. At this time she [...] such as abdominal pain, jaundice, or bleeding. Coreen was very comfortable with this plan. Thank you again for allowing me to participate in Coreen'alex care. I shall continue to keep you advised of her progress. 06/27/2024 Vomiting (ICD-10 - R11.10) Overall, Coreen appears quite well. At this time she [...] such as abdominal pain, jaundice, or bleeding. Coreen was very comfortable with this plan. Thank you again for allowing me to participate in Coreen'alex care. I shall continue to keep you advised of her progress. Plan Of Treatment Pending Test Test Name Order Date LIVER PROFILE 11/24/2016 LIVER PROFILE 10/31/2022 LIVER PROFILE 06/27/2024 CBC w DIFF 06/27/2024 CBC w DIFF 10/31/2022 PROTHROMBIN TIME (PT, INR) 09/08/2020 ALPHA-FETOPROTEIN,TUMOR MARKER 3 ALPHA-FETOPROTEIN,TUMOR MARKER 0 ALPHA-FETOPROTEIN,TUMOR MARKER 4 ALPHA-FETOPROTEIN,TUMOR MARKER 1 ALPHA-FETOPROTEIN,TUMOR MARKER 7 HEPATITIS B VIRAL DNA QUANT 09/08/2020 US ABD 10/31/2022 US ABD 09/08/2020 HEPATITIS B DNA QN PCR RFLX HBV GENOTYPE 06/27/2024 HEPATITIS B DNA QN PCR RFLX HBV GENOTYPE 11/24/2016 Prothrombin Time INR 10/31/2022 Prothrombin Time INR 06/27/2024 Liver Fibrosis Pnl 06/27/2024 Liver Fibrosis Pnl 10/31/2022 Hepatitis B Viral DNA Qn 10/31/2022 US abdomen comp w elastography 4 Future Test Test Name Order Date UPPER GI ENDOSCOPY 10/14/2021 COLONOSCOPY 11/23/2021 Next Appt Details Provider Name:Garrick Vincent Elizabeth , 06/25/2025 09:40:00 AM, [address], [address], [place], [address], Insurance Providers Payer Name Payer Address Payer Phone Subscriber Number Group Number Insured Name Patient Relationship to Insured Coverage Start Date Coverage End Date [employer] [place] [address] [address] [place] [address] [id number] COREEN WHITT Self - patient is the insured Medical (General) History Medical History History ICD Code Chronic hepatitis B--liver b x in 2004 WNL except for very minimal inflammation-no scarring--Hep B E Ag is neg and Hep B E Ab is +, LFT's are always WNL, Hep B DNA has been elevated. She is s/p Hep A vaccine. She had a normal alpha-fetoprotein level, liver profile, and liver ultrasound in 2010, other than a small hemangioma in the liver. Her hepatitis B DNA level was 23,682 in April 2011; labs in 2013 revealed a normal alpha-fetoprotein level and normal liver profile--the liver ultrasound was normal other than a small probable hemangiomas that had been seen on previous ultrasounds Denies MN,DM,CVA,renal disease Epigastric abdominal pain in fall--she had a negative abdominal ultrasound, negative abdominal CT scan, negative laboratories, and negative upper endoscopy in September of 2021 other than a small hiatal hernia--gastric biopsies were negative for H. pylori Negative screening colonoscopy in April COVID in October 2023 Surgical History Surgery Date(Month/Year) C- section Foot surgery right Breast [id number]
--- OUTSIDE RECORDS SUMMARY | 2025-02-05 07:40 | XMS_ITS ---
Author Organization [facility] Address [address] [place] [phone] Care Team Providers Care Dry Chain Worker Name Role Phone Pedro Lutz MD Primary Care Provider Garrick Leiva [phone] REASON FOR VISIT LLQ PAIN/ went to ER Medications Medication SIG (Take, Route, Fr equency, Duration) Notes Start Date End Date Status Omeprazole 40 MG 1 capsule 1/2 to 1 h our before morning meal Orally Once a day for 30 day(s) 11/19/2024 Active Encounters Encounter Location Date Provider Diagnosis [facility] [address] [place] [phone] 11/18/2024 Garrick Johnson Plan Of Treatment Medication Medication Name Sig Start Date Stop Date Notes Omeprazole 40 MG 1 capsule 1/2 to 1 h our before morning meal Orally Once a day for 30 day(s) 11/19/2024 Next Appt Details Provider Name:Garrick Johnson , 06/25/2025 09:40:00 AM, [address] [place] [address], [address], [place], [address], Progress Notes * AQUILES WHITTDOB:1975 (49 yo F)Acc No.[id number]:11/18/2024 Patient:?AQUILES WHITT :1975???Age:49 Y???Sex:Female Address:[place] [address], [place] [address] * Refills? Start Omeprazole Capsule Delayed Release, 40 MG, Orally, 30, 1 capsule 1/2 to 1 hour before morning meal, Once a day, 30 day(s), Refills=4 * true * Date:? Generated for Yusra cuellra/Shiv/Sharonitting on:?02/05/2025 07:39 AM EDT
--- NOTE | 2025-02-05 07:41 | A.OFFVIS_ITS ---
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 She is doing well with handkerchief cutter concerns. Currently sexually active. Has not a Mirena IUD in place since approximately 2017. Denies any vaginal dryness or irritation. STI testing offered; she declined. Attempting to eat a healthy diet with calcium and vitamin D and stays active with exercise. Last pap smear; 2023, negative, HPV positive in 2019. Last mammogram; 2024. Colonoscopy is UTD. Denies any family history of ovarian or colon cancer. Family history of breast cancer-paternal grandmother. 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[place] [employer] [place] Sexual orientation: Straight/Heterosexual Gender identity: Female Female Reproductive History Menstrual control method: progestin IUCD (Mirena 01/2019) Total pregnancies: 2 Full term: 2 Number of Living Children: 2 Date of last pap smear: 11/07/22 (neg pap and hpv) History of abnormal pap smear: Yes (09/17 +hpv 1999 Leep Tamar 2) Date of Mammogram: 11/14/24 (Birad 2) Review of Systems Const All systems reviewed & are unremarkable except as noted in HPI and below Reports as per HPI Eyes Reports no additional complaints ENT Reports no additional complaints Card Reports no additional complaints Resp Reports no additional complaints GI Reports as per HPI and Reports no additional complaints Reports as per HPI Musc Reports no additional complaints Skin/Breast Reports as per HPI Neuro Reports no additional complaints Psych Reports no additional complaints Endo Reports no additional complaints Otf/Lymph Reports no additional complaints Aller/Immun Reports no additional complaints Physical Exam Vital Signs: BMI result Body Mass Index 27.9 Const General: cooperative, healthy appearing, no acute distress, well developed and alert Orientation/consciousness: patient oriented x3 HEENT Head: Yes normal to inspection Eyes General: appearance normal, both eyes and all related structures Neck Neck: Yes normal visual inspection Thyroid: Thyroid normal Chest Chest palpation & inspection: normal inspection of the chest and other (no puckering, dimpling, peau de orange, retraction, discharge, masses) Breast/axilla inspection: normal inspection of the breasts Breast/axilla palpation: normal palpation of the breasts Resp Effort & Inspection: normal respiratory effort GI Inspection: Yes normal to inspection Palpation (GI): Soft to palpation Rectal Exam - Female: deferred General: Yes bladder normal to palpation External Female Exam: normal external appearance and normal appearance of the urethra Speculum Exam - Vagina: normal appearance of the vagina, normal palpation and normal vaginal discharge Speculum Exam - Cervix: normal appearance of the cervix, normal palpation and Other cervical findings present (IUD strings at the os) Bimanual exam- vagina & uterus: normal bimanual exam, normal palpation, uterine size normal, bladder normal to palpation, normal palpation and non-tender Bimanual Exam- Adnexa, other: no masses Skin General skin exam: no rashes or lesions noted Rashes: no rashes Neuro General: patient oriented x3 Cognition (Neuro): normal cognition Extrem General: Yes normal to inspection Psych Attitude: cooperative Thought process: Normal thought process present Assessment & Plan Assessment & Plan (1) Encounter for well woman exam with routine gynecological exam: Code(s): Z01.419 - Encounter for gynecological examination (general) (routine) without abnormal findings Category: Medical Plan Discussed: Current recommendations for pap smears per ASCCP guidelines. Breast awareness, periodic self breast exams and yearly mammogram. Maintain a healthy lifestyle, well balanced diet including Calcium 1,200 mg and Vitamin D 600 IU daily, and routine exercise. Patient verbalizes understanding and agrees to the plan of care. She was given opportunity to ask questions and all questions were answered to the best of my ability. RTO in 1 year for annual handkerchief cutter exam. This note is constructed using voice recognition software. While every effort has been made to ensure accuracy, offset assistant press operator errors may have been included. Coding Level of Care Code Est Pt Prev Care 40-64y(93830) Diagnoses Encounter for well woman exam with routine gynecological exam Z01.419
[2025-02-05 07:43] VITALS: BP 114/76; BMI 27.9
== END 2025-02-05 08:07 | disposition home or self-care (01) ==
LOC: HO.HWS 07:37
PROVIDERS: PCP Internal Medicine; Visit Provider Advanced Practice Midwife
DX: Z01.419 Encounter for gynecological examination (general) (routine) without abnormal findings (principal)
CPT/HCPCS: 99396; 99459

== ENCOUNTER 2025-09-11 08:13 | Outpatient (AMB) | payer OTHER, SELFPAY ==
--- NOTE | 2025-09-11 08:18 | A.OFFPC_ITS ---
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 The patient has a history of chronic hepatitis B, which was diagnosed many years ago and is followed by Dr. Johnson. The condition has remained stable with a low viral load, and she has not required treatment, with her liver functions remaining fine. For the past year, the patient has experienced intermittent episodes of nausea and vomiting, typically occurring in the morning, where she will feel ill for a week or two, followed by a resolution of symptoms. She is also followed by Dr. Johnson for this issue and has undergone an endoscopy and colonoscopy without identifying a cause. Dietary modifications, including reducing caffeine, spicy foods, and acidic foods, have not provided relief. She takes omeprazole for acid reflux. Her last cholesterol panel in 2023 was normal, but her vitamin D level was low, for which she takes an OTC supplement but was not prescribed a high-dose version. She reports occasional general anxiety but feels she manages it well. The patient's last colonoscopy was in 2021, and her Pap smear is up to date until 2028. She gets regular mammograms. She had influenza two weeks ago and has not yet received the flu shot. She has a history of adverse reactions to COVID- 19 vaccines, including high fever, and has not received recent boosters. Medical History: - Chronic hepatitis B, stable and not re quiring pharmacologic treatment. - Gastroesophageal reflux disease, manag ed with omeprazole. - Intermittent nausea and vomiting of un clear etiology. - Vitamin D deficiency. - Generalized anxiety, occasional. - History of adverse reaction to COVID-1 9 vaccine. - Influenza infection two weeks prior to visit. Surgical History: - section - Orthopedic surgery on her foot Medications: - Vitamin D supplement - Mirena IUD - Magnesium gluconate supplement - Multivitamin - Omeprazole for acid reflux Family History: - Patient is adopted and has limited kno wledge of her biological family history. - Reports heart disease in her known fam raulito history. - Denies known family history of diabete s or cancer. Diagnostic Results: - Labs (2023): Cholesterol panel was fin e with a good LDL. - Labs (2023): Vitamin D level was low. - Labs (2023): Thyroid function was chec ked. - Procedures: Past endoscopy, findings n ot specified. - Procedures: Colonoscopy performed in 2 022. - Screening: Last Pap smear is valid unt ct 2028. - Screening: Mammogram is up to date. - Screening: PHQ-9 and MIKEL-7 were negati ve for depression and anxiety. Social History: - Tobacco Use: Denies ever smoking. - Alcohol Use: Reports minimal alcohol u se, less than once a week. - Illicit Substance Use: Denies use of m arijuana, cocaine, or heroin. - Allergies: No known allergies. [facility] Medical History (Updated 09/11/25 @ 08:47 by Keyur Younger MD) Anxiety Vitamin D deficiency GERD without esophagitis Annual physical exam Chronic hepatitis B Surgical History (Updated 09/09/25 @ 16:40 by Shahida Olmedo) History of colonoscopy (~05/05/22) Hx of esophagogastroduodenoscopy History of section History of orthopedic surgery History of breast biopsy Family History Paternal Grandmother Breast cancer Social History Household Members: Spouse Household Members Other:: daughter Housing: House Alcohol intake: current Alcohol intake frequency: a few times a week Patient Tobacco Use Status: Never used Tobacco e-Cigarette/Vaping Use: Never Used Advance Directives Date on File: 08/02/20 service: No Current occupational status: employed 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 1. Little interest or pleasure in doing things: not at all 2. Feeling down, depressed, or hopeless: not at all 3. Trouble falling or staying asleep, or sleeping too much: several days 4. Feeling tired or having little energy: several days 5. Poor appetite or overeating: not at all 6. Feeling bad about yourself - or that you are a failure or have let yourself or your family down: not at all 7. Trouble concentrating on things, such as reading the newspaper or watching television: not at all 8. Moving or speaking so slowly that other people could have noticed. Or the opposite - being so fidgety or restless that you have been moving around a lot more than usual: not at all 9. Thoughts that you would be better off or of hurting yourself in some way: not at all Total score: 2 Depression Screening Interpretation: Negative Depression Screening Done: Yes [id number] - PHQ-9 Billing: Yes Source: Developed by Drs. Garrick Orourke, Andreea Rivera, Alfonzo Hobbs and colleagues, with an educational siena from [employer]. AUDIT C Alcohol Use Questionnaire (AUDIT-C) 1. How often do you have a drink containing alcohol?: Monthly or less 2. How many drinks containing alcohol do you have on a typical day when you are drinking?: 1 or 2 3. How often do you have six or more drinks on one occasion?: Never Total Score: 1 Score Reviewed/Action Taken: Yes MIKEL-7 AMB Questionnaire MIKEL-7 Date MIKEL - 7 assessed: 09/11/25 Feeling nervous, anxious, or on edge: 1 = Several days Not being able to stop or control worryin = Not at all Worrying too much about different things: 0 = Not at all Trouble relaxin = Not at all Being so restless that it is hard to sit still: 0 = Not at all Becoming easily annoyed or irritable: 0 = Not at all Feeling afraid as if something awful might happen: 0 = Not at all Total MIKEL-7 score (0-4 normal; 5-9 mild; 10-14 moderate; 15-21 severe): 1 Source: Developed by Drs. Garrick Orourke, Andreea Rivera, Alfonzo Hobbs and colleagues, with an educational siena from [employer]. MIKEL-7 Assessment Billing MIKEL-7 Assessment Tool: MIKEL-7 Assessment 00554 Review of Systems Narrative - Gastrointestinal: Reports intermittent nausea and vomiting, which occurs in the morning and lasts for a week or two before resolving. - She also reports acid reflux. - Reports a spot on her abdomen that is almost always tender to touch. - She denies pain or burning with urination. - Psychiatric: Reports occasional generalized anxiety but feels it is well managed. - Denies depression or significant anxiety per PHQ-9 and MIKEL-7 screening. - General: Denies diabetes. All systems reviewed & are unremarkable except as reviewed in HPI and above Physical exam (Primary Care) Vital Signs: Last Vital Signs Temp 97.7 F 09/11/25 08:22 Pulse 73 09/11/25 08:22 Resp 18 09/11/25 08:22 BP 130/72 09/11/25 08:22 Pulse Ox 97 09/11/25 08:22 Oxygen Delivery Method Room Air 09/11/25 08:22 BMI result Body Mass Index 29.8 Tobacco/Smoking Status: Tobacco use Status Tobacco use date assessed 09/11/25 09/11/25 08:24 Patient Tobacco Use Status Never used Tobacco 09/11/25 08:24 e-Cigarette/Vaping Use Never Used 09/11/25 08:24 PHQ-9: PHQ-9 Score PHQ-9: Total score 2 09/11/25 08:36 Depression Screening Interpretation: Negative Narrative General: Alert and oriented, Well nourished, No acute distress. Eye: Pupils are equal, round and reactive to light, Intact accommodation, Extraocular movements are intact, Normal conjunctiva, Vision unchanged. HENT: Normocephalic, Atraumatic, Tympanic membranes are clear, Normal hearing, Oral mucosa is moist, No pharyngeal erythema, Ear canals patent. Respiratory: Lungs CTA bilaterally, No wheeze, Respirations are non-labored. Cardiovascular: Regular rate, Regular rhythm, S1 auscultated, S2 auscultated, No murmur, Good pulses equal in all extremities, Normal peripheral perfusion, No edema. Gastrointestinal: Soft, Non-tender, Non-distended, Normal bowel sounds, No organomegaly. Musculoskeletal: Normal range of motion, Normal strength, No tenderness except for a spot that is almost always tender to touch, No swelling, No deformity, Normal gait. Integumentary: Warm, Dry, [place], Intact. Neurologic: Alert, Oriented, Normal sensory, Normal motor function, No focal defects, Cranial Nerves II-XII are grossly intact, Normal deep tendon reflexes. Psychiatric: Cooperative, Appropriate mood & affect, Normal judgment, General anxiety once in a while but managed well. 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 - Plan is to continue current monitoring with her specialist. Code(s): B18.1 - Chronic viral hepatitis B without delta-agent Category: Medical (2) GERD without esophagitis: Comment: - Patient experiences intermittent, self-resolving episodes of morning nausea and vomiting. - A clear etiology has not been found despite evaluation by her GI specialist, which included endoscopy and colonoscopy. - She takes omeprazole for acid reflux. - Plan is for continued management and follow-up with Dr. Johnson. Code(s): K21.9 - Gastro-esophageal reflux disease without esophagitis Category: Medical (3) Vitamin D deficiency: Comment: - The patient has a history of a low vitamin D level checked in 2023 and takes an [id number] supplement. - Plan is to recheck the vitamin D level and initiate high-dose vitamin D therapy if the level remains low. Code(s): E55.9 - Vitamin D deficiency, unspecified Category: Medical (4) Anxiety: Comment: - The patient reports occasional, well-managed anxiety. - Her MIKEL-7 and PHQ-9 screenings were negative. - No acute intervention is required at this time; will continue to monitor. Code(s): F41.9 - Anxiety disorder, unspecified Category: Medical (5) Annual physical exam: Comment: - The patient is a 50-year-old female establishing care who appears generally healthy. - Her preventative screenings are largely up-to-date. - The plan is to order baseline labs, including a cholesterol panel, thyroid studies, vitamin D level, and a hemoglobin A1c. - A discussion was had regarding influenza and COVID-19 vaccinations. - The patient will be contacted via the portal with lab results and can call to schedule her next annual visit. Code(s): Z00.00 - Encounter for general adult medical examination without abnormal findings Category: Medical Plan: Health Maintenance: - Screening labs will be ordered, including a cholesterol panel, thyroid panel, vitamin D level, and hemoglobin A1c. - Immunizations: Patient was advised to get the flu shot, as she recently recovered from influenza. - COVID-19 vaccination was discussed; patient has a history of adverse reactions and has not received recent boosters. - Screenings: Mammogram is up to date. - Last colonoscopy was in 2021. - Pap smear is up to date until 2028. - Mental Health Screening: PHQ-9 and MIKEL-7 screenings for depression and anxiety were completed and were negative. Patient was informed and verbally consented to the use of an ambient scribe for clinic note documentation during this visit. Vital signs reviewed. Comprehensive history, review of systems, and physical exam completed. Medications, allergies, and problem list reviewed and updated. Counseling provided on nutrition, regular exercise, sleep hygiene, and moderation of alcohol use. Discussed age-appropriate screenings (mammogram, colonoscopy, Pap, bone density) and immunizations (flu, COVID, shingles, Tdap). Screened for depression, fall risk, and home safety; no current concerns. Discussed stress management, dental and vision care, and importance of ongoing preventive follow-up. Routine labs ordered for metabolic and lipid screening. Patient educated on healthy lifestyle and agrees with the plan. Plan I have seen the patient for a new patient visit to establish care. We discussed her overall good health and reviewed her medical history, including her stable chronic hepatitis B, intermittent gastrointestinal symptoms, and history of vitamin D deficiency. I informed her that we would be ordering baseline labs, including a cholesterol panel, thyroid level, vitamin D, and an A1c for diabetes screening. I explained that if her vitamin D level comes back low, we will initiate a high-dose supplement, and I will reach out to her via the patient portal. We reviewed that her health screenings, including mammogram, colonoscopy, and Pap smear, are up to date. We also discussed vaccinations, and I recommended she get the flu shot. I acknowledged her history of adverse reactions to the COVID-19 vaccine but noted that vaccination is important for safety. I will share the lab results once they are available. Orders: Orders Complete Blood Count Auto Diff Today Z00.00 - Encounter for general adult medical examination without abnormal findings Comprehensive Met. Panel Today Z00.00 - Encounter for general adult medical examination without abnormal findings Hemoglobin A1c Today Z00.00 - Encounter for general adult medical examination without abnormal findings Lipid Panel Today Z00.00 - Encounter for general adult medical examination without abnormal findings Microalbumin, Random (w Creat) Today Z00.00 - Encounter for general adult medical examination without abnormal findings TSH reflex Free T4 Today Z00.00 - Encounter for general adult medical examination without abnormal findings Vitamin D 25-OH Total Today Z00.00 - Encounter for general adult medical examination without abnormal findings Patient Instructions: - Please go to the lab to have your blood drawn for the tests we ordered today. - I will contact you through the patient portal with your lab results. - If your vitamin D level is low, I will send a prescription for high-dose vitamin D. - Please get your annual flu shot. - You may call the office to schedule your next annual visit when you are ready. - Continue to follow up with your sock and stocking ironer, Dr. Johnson, for your stomach issues and chronic hepatitis B.
[2025-09-11 08:22] VITALS: BP 130/72; PULSE 73; RESP 18; TEMP 36.5; O2SAT 97; BMI 29.8
== END 2025-09-11 08:49 | disposition home or self-care (01) ==
PROVIDERS: PCP Student in an Organized Health Care Education/Training Program; Visit Provider Student in an Organized Health Care Education/Training Program
DX: Z00.00 Encounter for general adult medical examination without abnormal findings (principal); B18.1 Chronic viral hepatitis B without delta-agent; E55.9 Vitamin D deficiency, unspecified; K21.9 Gastro-esophageal reflux disease without esophagitis; F41.9 Anxiety disorder, unspecified

== ENCOUNTER → 2025-09-11 08:13 | Outpatient (BNVA) | payer OTHER, SELFPAY | PROVIDERS: PCP Internal Medicine; Visit Provider Student in an Organized Health Care Education/Training Program | DX: Z00.00 Encounter for general adult medical examination without abnormal findings (principal); B18.1 Chronic viral hepatitis B without delta-agent; K21.9 Gastro-esophageal reflux disease without esophagitis; E55.9 Vitamin D deficiency, unspecified; F41.9 Anxiety disorder, unspecified; Z79.899 Other long term (current) drug therapy; Z13.31 Encounter for screening for depression; Z13.39 Encounter for screening examination for other mental health and behavioral disorders | CPT/HCPCS: 96127 ==